=== PATIENT | male | born 1965 | race Caucasian/White ===

== ENCOUNTER 2022-02-21 08:03 | Day surgery (SDC) | payer OTHER ==
[2022-02-21 09:00] VITALS: BMI 23.3
[2022-02-21 09:01] LABS: Protime INR 1.49
[2022-02-21 09:06] LABS: Potassium 3.7 mmol/L (3.5-5.1)
--- NOTE | 2022-02-21 10:22 | RAD REPORT ---
EXAM DESCRIPTION: RAD - Chest Pa And Lat (2 Views) - 02/21/2022 9:42 am CLINICAL HISTORY: PRE PROCEDURE SCREEENING COMPARISON: Paracentesis Proc Guidance dated 02/21/2022 FINDINGS: Lines: None. Lungs: There is likely a component of atelectasis as a result of the right pleural effusion. The lung s are otherwise clear. Pleural: Small right pleural effusion. Cardiac: The heart size is within normal limits. Mediastinum: Within normal limits. Bones: No acute fractures. Other: None IMPRESSION: Small right pleural effusion and probably underlying atelectasis.
--- NOTE | 2022-02-21 10:54 | RAD REPORT ---
EXAM DESCRIPTION: US - Paracentesis Proc Guidance - 02/21/2022 10:42 am CLINICAL HISTORY: ASCITES Ascites COMPARISON: No comparisons FINDINGS: Informed consent was obtained and time-out was performed. Patient's abdomen was prepped and draped in the usual sterile fashion. 1% lidocaine was used for loca l anesthetic purposes. A small skin incision was made. A paracentesis catheter was guided into the peroneal cavity under son ographic guidance. A small amount of fluid was sent for requested lab studies. A large volume paracentesis was performed . The patient tolerated the procedure well. IMPRESSION: Successful ultrasound-guided paracentesis.
[2022-02-21 11:13] VITALS: O2SAT 99
[2022-02-21 12:55] VITALS: BP 122/68
[2022-02-21 12:56] VITALS: TEMP 98
[2022-02-21 19:49] LABS: Appearance CLEAR (CLEAR); Body Fluid Source PERITONEAL; Color of fluid Yellow (COLORLESS)
[2022-02-21 19:50] LABS: Body Fluid WBC 108 /mm^3
== END 2022-02-21 11:45 | disposition home or self-care (01) ==
LOC: DS 08:03
PROVIDERS: ATTEND Internal Medicine Gastroenterology
DX: R18.8 Other ascites (principal); K70.30 Alcoholic cirrhosis of liver without ascites; R93.5 Abnormal findings on diagnostic imaging of other abdominal regions, including retroperitoneum
CPT/HCPCS: 36415; 49083; 71046; 80048; 82042; 82150; 84157; 85610; 85730; 87070; 89050

== ENCOUNTER 2023-01-20 18:52 | Inpatient (IN) | payer OTHER ==
--- OUTSIDE RECORDS SUMMARY | 2023-01-20 18:57 | XMS REPORT | Continuity of Care Document ---
:1965 Author Organization [facility] t Address [address] [place] [address] Care Team Providers Name Role Phone MIGUEL VAZQUEZ Primary Care Physician Unavailable JASS BIANCHI Attending Clinician Unavailable MALACHI DAVIS Attending Clinician Unavailable Only, Adc Test Attending Clinician Unavailable Tova Michelle MD Attending Clinician Pob, [facility] Lab Main Attending Clinician Unavailable TOVA MICHELLE Attending Clinician Unavailable AMERICA FAYE Attending Clinician Unavailable America Faye DO Attending Clinician MIGUEL VAZQUEZ Attending Clinician Unavailable Doctor Unassigned, [place] Attending Clinician Unavailable CHOCO DIAZ III Attending Clinician Unavailable Joe GREENE MD, John G Attending Clinician Miguel Vazquez MD Attending Clinician PIPPA JOHNSON Attending Clinician Unavailable Lab, Ang - Db Attending Clinician Unavailable JAMARCUS MUNGUIA Attending Clinician Unavailable KELLIE BARAJAS Attending Clinician Unavailable PEDRITO MASTERSON Attending Clinician Unavailable NATALYA LOCKHART Attending Clinician Unavailable AMERICA FAYE Admitting Clinician Unavailable CHOCO DIAZ III Admitting Clinician Unavailable PEDRITO MASTERSON Admitting Clinician Unavailable Jass Bianchi Admitting Clinician Payers Payer Name Policy Type Policy Number Effective Date Expiration Date S Psychiatric CHOICE/CHOICE [id number] 2019 PLUS 00:00:00 [facility] [id number] 2019 PPO 00:00:00 MEDICARE PART A \\T\\ [id number] 2020 B 00:00:00 Problems Condition Condition Condition Status Onset Resolution Last Treating Co mments Source Name Details Category Date Date Treatment Clinician Date 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 00:00: [place] (ECG) (ECG) 00 [facility] (EKG) (EKG) Branch Excessive Excessive Disease Active Uni vers crying crying 7- ity of 00:00: [place] [facility] Hypertensi Hypertensi Disease Active 2018-05 U nivers ve urgency ve urgency 0-09 it y of 00:00: [place] [facility] Cigarette Cigarette Disease Active 2018-05 Uni vers smoker smoker 0-09 ity of 00:00: [place] [facility] Chest pain Chest pain Disease Active 2018-05 U nivers 0-08 ity of 00:00: [place] [facility] Non-recurr Non-recurr Disease Active Overview : Univers ent ent 2-04 Formattin ity of bilateral bilateral 00:00: [place] of [place] inguinal inguinal 00 note Medica l hernia hernia might be Branch without without different obstructio obstructio from the n or n or original. gangrene gangrene Added automatic ally from request for surgery [id number] Inguinal Inguinal Disease Active Unive rs hernia hernia - ity of 00:00: [place] [facility] Fatty Fatty Disease Active Univers liver liver 6- ity of 00:00: [place] [facility] Abnormal Abnormal Disease Active Unive rs LFTs LFTs - ity of 00:00: [place] [facility] Essential Essential Disease Active Uni vers hypertensi hypertensi 1-19 it y of on on 00:00: [place] [facility] Insomnia Insomnia Disease Active Unive rs due to due to 06-15 ity of medical medical 00:00: [place] condition condition 00 Medi shakila Branch Osteoarthr Osteoarthr Disease Active U nivers itis of itis of 06-15 ity of lumbar lumbar 00:00: [place] spine spine 00 Medical Branch Chronic Chronic Disease Active Univers lower back lower back - it y of pain pain 00:00: [place] 00 Medical Branch Hypertensi Hypertens Problem Active 2016-11-13 Memoria ve malissa 05-28 04:00:55 l disorder, disorder, 00:00: Herm gerardo systemic systemic 00 arterial arterial (disorder) (disorder) Active 05/28/2015 Problem 11/13/2016 Pt states he was prescribed lisinopril but it gave him bad headaches and he discussed it with his pcp and it was discontinu ed. Not currently taking anything for bp. 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, lumbar degenerati region on, lumbar region 11/10/2016 11/13/2016 [facility] Allergies, Adverse Reactions, Alerts Allergy Allergy Status Severity Reaction(s) Onset Inactive Treating Comm ents Source Name Type Date Date Clinician NO KNOWN Drug Active Univers ALLERGIE Class ity of S [facility] Social History Social Habit Start Date Stop Date Quantity Comments Source History of 2019 Cigar Smoker [place] o f tobacco use 00:00:00 [facility] Exposure to 2022-01-30 2022-02-09 Not sure [facility] SARS-CoV-2 00:00:00 13:18:00 [facility] (event) Branch Alcohol intake 2022-02-09 2022-02-09 .29 /d University of 00:00:00 00:00:00 [facility] Tobacco use and 2020-12-21 2020-12-21 Smokeless tobacco Un iversity of exposure 00:00:00 00:00:00 non-user [facility] Social History 2016-11-11 2016-11-11 [facility] finesse 15:35:00 15:35:00 Tobacco Comment 2016-06-14 2016-06-14 2 cigars per day Uni versity of 00:00:00 00:00:00 [facility] Sex [birth year] Universit y of 00:00:00 00:00:00 [facility] Smoking Status Start Date Stop Date Source Smokes tobacco daily 2020-12-21 00:00:00 Univers ity [facility] Medications Ordered Filled Start Stop Current Ordering Indication Dosage Frequency Signature Comments Components Source Medication Medication Date Date Medication? Clinician (SIG) Name Name iopamidol 2021- No [id number] 65mL 65 mL, Univers (ISOVUE 02-09 Intravenou ity o f 370-500 mL) 20:30: 20:30 s, ONCE, 1 [place] injection 00 :00 dose, On Medica l 65 mL Anita Abhijit 02/09/22 at 1530, Routine spironolact Yes [id number] 25mg Take 1 Univers one 25 mg 9-15 tablet by ity o f tablet 00:00: mouth in [place] 00 the Medical morning. Branch furosemide Yes [id number] 20mg Take 1 Univers 20 mg 9-15 tablet by ity of tablet 00:00: mouth [place] 00 every Medical morning. Branch spironolact Yes [id number] 25mg Take 1 Univers one 25 mg 9-15 tablet by ity o f tablet 00:00: mouth in [place] 00 the Medical morning. Branch furosemide 0 Yes [id number] 20mg Take 1 Univers 20 mg 9-15 tablet by ity of tablet 00:00: mouth [place] 00 every Medical morning. Branch spironolact 0 Yes [id number] 25mg Take 1 Univers one 25 mg 9-15 tablet by ity o f tablet 00:00: mouth in [place] 00 the Medical morning. Branch furosemide 2021-0 Yes [id number] 20mg Take 1 Univers 20 mg 9-15 tablet by ity of tablet 00:00: mouth [place] 00 every Medical morning. Branch spironolact 0 Yes [id number] 25mg Take 1 Univers one 25 mg 9-15 tablet by ity o f tablet 00:00: mouth in [place] 00 the Medical morning. Branch furosemide 0 Yes [id number] 20mg Take 1 Univers 20 mg 9-15 tablet by ity of tablet 00:00: mouth [place] 00 every Medical morning. Branch iopamidol 2020-05- No [id number] 80mL 80 mL, Univers (ISOVUE 06-29 Intravenou ity o f 370-500 mL) 15:43: 15:40 s, ONCE, 1 [place] injection 00 :00 dose, On Medica l 80 mL Anita Branch 04/28/21 at 1000, Routine CITALOPRAM 0 Yes [id number] TAKE 1 Univers 10 mg 8-18 TABLET BY ity of tablet 00:00: MOUTH [place] 00 EVERY DAY Medical Branch CITALOPRAM 0 Yes [id number] TAKE 1 Univers 10 mg 8-18 TABLET BY ity of tablet 00:00: MOUTH [place] 00 EVERY DAY Medical Branch CITALOPRAM 0 Yes [id number] TAKE 1 Univers 10 mg 8-18 TABLET BY ity of tablet 00:00: MOUTH [place] 00 EVERY DAY Medical Branch CITALOPRAM 0 Yes [id number] TAKE 1 Univers 10 mg 8-18 TABLET BY ity of tablet 00:00: MOUTH [place] 00 EVERY DAY Medical Branch CITALOPRAM 0 Yes [id number] TAKE 1 Univers 10 mg 8-18 TABLET BY ity of tablet 00:00: MOUTH [place] 00 EVERY DAY Medical Branch CITALOPRAM 0 Yes [id number] TAKE 1 Univers 10 mg 8-18 TABLET BY ity of tablet 00:00: MOUTH [place] 00 EVERY DAY Medical Branch CITALOPRAM 0 Yes [id number] TAKE 1 Univers 10 mg 8-18 TABLET BY ity of tablet 00:00: MOUTH [place] 00 EVERY DAY Medical Branch CITALOPRAM 0 Yes [id number] TAKE 1 Univers 10 mg 8-18 TABLET BY ity of tablet 00:00: MOUTH [place] 00 EVERY DAY Medical Branch CITALOPRAM 0 Yes [id number] TAKE 1 Univers 10 mg 8-18 TABLET BY ity of tablet 00:00: MOUTH [place] 00 EVERY DAY Medical Branch gabapentin 2020-0 Yes [id number] 300mg Take 1 Univers 300 mg 2-24 capsule by ity of capsule 00:00: mouth (three) Medical times Branch daily. gabapentin 2020-0 Yes [id number] 300mg Take 1 Univers 300 mg 2-24 capsule by ity of capsule 00:00: mouth (three) Medical times Branch daily. gabapentin 2020-0 Yes [id number] 300mg Take 1 Univers 300 mg 2-24 capsule by ity of capsule 00:00: mouth (three) Medical times Branch daily. gabapentin 2020-0 Yes [id number] 300mg Take 1 Univers 300 mg 2-24 capsule by ity of capsule 00:00: mouth (three) Medical times Branch daily. gabapentin 2020-0 Yes [id number] 300mg Take 1 Univers 300 mg 2-24 capsule by ity of capsule 00:00: mouth () Medical times Branch daily. gabapentin 2020-0 Yes [id number] 300mg Take 1 Univers 300 mg 2-24 capsule by ity of capsule 00:00: mouth () Medical times Branch daily. gabapentin 2020-0 Yes [id number] 300mg Take 1 Univers 300 mg 2-24 capsule by ity of capsule 00:00: mouth () Medical times Branch daily. gabapentin 2020-0 Yes [id number] 300mg Take 1 Univers 300 mg 2-24 capsule by ity of capsule 00:00: mouth () Medical times Branch daily. gabapentin 2020-0 Yes [id number] 300mg Take 1 Univers 300 mg 2-24 capsule by ity of capsule 00:00: mouth [place] () Medical times Branch daily. Colace No 100 mg = 1 Memor ia 6-17 caps, Cap, l 02:00: Oral, BID, Scooby first dose 11/10/16 21:00:00 CDT Colace No 100 mg = 1 Memor ia 6-17 caps, Cap, l 02:00: Oral, BID, Scooby 00 first dose 11/10/16 21:00:00 CDT Acetaminoph Yes Special Mem oria en 325 MG / 11-10 Instructio l Hydrocodone 22:43: ns: 1-2 Her nava Bitartrate 00 Tab(s), 10 MG Oral PO, Every Tablet 4-6 hours, [[place] as needed 10/325] for pain Acetaminoph Yes Special Mem oria en 325 MG / 6-16 Instructio l Hydrocodone 22:43: ns: 1-2 Her nava Bitartrate 00 Tab(s), 10 MG Oral PO, Every Tablet 4-6 hours, [[place] as needed 10/325] for pain Cefazolin No 2 gm, Memoria 6-16 Soln-IV, l 20:30: IV Scooby 00 Piggyback, q8hr, infuse over 30 minutes, order duration: 3 doses, first dose 11/10/16 15:30:00 CDT, stop date 11/11/16 15:29:00 CDT, Prophylaxi s Cefazolin No 2 gm, Memoria 6-16 Soln-IV, l 20:30: IV [place] 00 Piggyback, q8hr, infuse over 30 minutes, order duration: 3 doses, first dose 11/10/16 15:30:00 CDT, stop date 11/11/16 15:29:00 CDT, Prophylaxi s ferrous No 325 mg = 1 [place] deyvi sulfate 6-16 tabs, Tab, l 18:00: Oral, Bennett TIDPC, first dose 11/10/16 13:00:00 CDT ferrous No 325 mg = 1 [place] deyvi sulfate 6-16 tabs, Tab, l 18:00: Oral, Bennett 00 TIDPC, first dose 11/10/16 13:00:00 CDT Saline Lock No 10 mL, [place] deyvi Flush 6-16 Soln, IV l 17:00: Push, Scooby 00 q8hr, first dose 11/10/16 12:00:00 CDT Saline Lock No 10 mL, [place] deyvi Flush 6-16 Soln, IV l 17:00: Push, Scooby 00 q8hr, first dose 11/10/16 12:00:00 CDT Benadryl No 25 mg = Memori a 6-16 0.5 mL, l 16:25: Injection, Scooby 00 IV Push, q6hr PRN for itching, first dose 11/10/16 11:25:00 CDT Bisacodyl 2017-0 No 10 mg = 1 Mem oria 6-16 supp, l 16:25: Supp, LA, Bennett 00 Daily PRN for constipati on, first dose 11/10/16 11:25:00 CDT Robaxin 2017-0 No 750 mg, IV Clinton deyvi IVPB 6-16 Piggyback, l 16:25: q6hr PRN Scooby 00 for muscle spasms, infuse over 15 minutes, first dose 11/10/16 11:25:00 CDT Diphenhydra 2017-0 No 25 mg = 1 M emoria mine 6-16 caps, Cap, l 16:25: Oral, q6hr Bennett 00 PRN for itching, first dose 11/10/16 11:25:00 CDT Benadryl 2017-0 No 25 mg = Memori a 6-16 0.5 mL, l 16:25: Injection, Bennett 00 IV Push, q6hr PRN for itching, first dose 11/10/16 11:25:00 CDT Bisacodyl 2017-0 No 10 mg = 1 Mem oria 6-16 supp, l 16:25: Supp, LA, Scooby 00 Daily PRN for constipati on, first dose 11/10/16 11:25:00 CDT Morphine 2017-0 No 8 mg = 0.8 Mem oria 6-16 mL, l 16:25: Injection, Scooby 00 IM, q3hr PRN for breakthrou gh pain, first dose 11/10/16 11:25:00 CDT Robaxin 2017-0 No 750 mg, IV Clinton deyvi IVPB 6-16 Piggyback, l 16:25: q6hr PRN Scooby 00 for muscle spasms, infuse over 15 minutes, first dose 11/10/16 11:25:00 CDT Diphenhydra 2017-0 No 25 mg = 1 M emoria mine 6-16 caps, Cap, l 16:25: Oral, q6hr Scooby 00 PRN for itching, first dose 11/10/16 11:25:00 CDT Morphine 2017-0 No 8 mg = 0.8 Mem oria 6-16 mL, l 16:25: Injection, Scooby 00 IM, q3hr PRN for breakthrou gh pain, first dose 11/10/16 11:25:00 CDT Flu Shot PF No 0.5 mL, Mem oria 6-16 Injection, l 16:25: IM, Once Bennett 00 PRN for other (see comment), first dose 11/10/16 11:25:00 CDT Acetaminoph No Notes: Max Memoria en 325 MG / 6-16 4gm l Hydrocodone 16:25: acetaminop [place] Bitartrate 00 hen in 24 10 MG Oral hours Tablet [[place] 10/325] Ondansetron No 4 mg = 2 Me moria 6-16 mL, l 16:25: Injection, Bennett 00 IV Push, q4hr PRN for nausea/vom iting, first dose 11/10/16 11:25:00 CDT Promethazin No 25 mg = 1 M emoria e 6-16 mL, l 16:25: Injection, Scooby 00 IM, q4hr PRN for severe nausea, first dose 11/10/16 11:25:00 CDT Naloxone No 0.1 mg = Memor ia -16 0.25 mL, l 16:25: Injection, Bennett 00 IV Push, q2min PRN for other (see comment), order duration: 4 doses, first dose 11/10/16 11:25:00 CDT, stop date Limited # of times Saline Lock No 10 mL, [place] deyvi Flush -16 Soln, IV l 16:25: Push, As [place] 00 Indicated PRN for flush, first dose 11/10/16 11:25:00 CDT LR 1,000 mL No 1,000 mL, M emoria 6-16 IV, 100 l 16:25: mL/hr, Scooby 00 start date 11/10/16 11:25:00 CDT Flu Shot PF No 0.5 mL, Mem oria 6-16 Injection, l 16:25: IM, Once [place] 00 PRN for other (see comment), first dose 11/10/16 11:25:00 CDT Acetaminoph No Notes: Max Memoria en 325 MG / 6-16 4gm l Hydrocodone 16:25: acetaminop [place] Bitartrate 00 hen in 24 10 MG Oral hours Tablet [[place] 10/325] Ondansetron 2016-0 No 4 mg = 2 Me moria 6-16 mL, l 16:25: Injection, Scooby 00 IV Push, q4hr PRN for nausea/vom iting, first dose 11/10/16 11:25:00 CDT Promethazin 2016-0 No 25 mg = 1 M emoria e 6-16 mL, l 16:25: Injection, Scooby 00 IM, q4hr PRN for severe nausea, first dose 11/10/16 11:25:00 CDT Naloxone 0 No 0.1 mg = Memor ia 6-16 0.25 mL, l 16:25: Injection, Scooby 00 IV Push, q2min PRN for other (see comment), order duration: 4 doses, first dose 11/10/16 11:25:00 CDT, stop date Limited # of times Saline Lock 2017- No 10 mL, [place] deyvi Flush -16 Soln, IV l 16:25: Push, As [place] 00 Indicated PRN for flush, first dose 11/10/16 11:25:00 CDT LR 1,000 mL 2017-0 No 1,000 mL, M emoria 6-16 IV, 100 l 16:25: mL/hr, Bennett 00 start date 11/10/16 11:25:00 CDT Morphine 2016-0 No 30 mL, [employer] Mem oria 6-16 Dose (mg): l 15:31: 2, Lockout Scooby 00 Interval (min): 10, Limit Amount (mg): 10, Limit Period (hr): 1, Continuous Rate (mg/hr): 1, IV, [employer], start date 11/10/16 10:31:00 CDT Naloxone 2016-0 No 0.1 mg = Memor ia 6-16 0.25 mL, l 15:31: Injection, Bennett 00 IV Push, q2min PRN for other (see comment), first dose 11/10/16 10:31:00 CDT Morphine 2017-0 No 30 mL, [employer] Mem oria 6-16 Dose (mg): l 15:31: 2, Lockout Interval (min): 10, Limit Amount (mg): 10, Limit Period (hr): 1, Continuous Rate (mg/hr): 1, IV, [employer], start date 11/10/16 10:31:00 CDT Naloxone 2017-0 No 0.1 mg = Memor ia 6-16 0.25 mL, l 15:31: Injection, IV Push, q2min PRN for other (see comment), first dose 11/10/16 10:31:00 CDT Misc 2017-0 No 900 mL, Memoria Medication 6-16 Soln-IV, l 15:30: IV, Once, first dose 11/10/16 10:30:00 CDT, stop date 11/10/16 10:30:00 CDT Misc 2017-0 No 900 mL, Memoria Medication 6-16 Soln-IV, l 15:30: IV, Once, first dose 11/10/16 10:30:00 CDT, stop date 11/10/16 10:30:00 CDT HYDROmorpho 2017-0 No 0.5 mg = Me moria ne 6-16 0.25 mL, l 15:21: Injection, IV, Once, first dose 11/10/16 10:21:00 CDT, stop date 11/10/16 10:21:00 CDT HYDROmorpho 2017-0 No 0.5 mg = Me moria ne 6-16 0.25 mL, l 15:21: Injection, IV, Once, first dose 11/10/16 10:21:00 CDT, stop date 11/10/16 10:21:00 CDT labetalol 2017-0 No 5 mg = 1 [place] deyvi 6-16 mL, l 14:56: Injection, IV, Once, first dose 11/10/16 9:56:00 CDT, stop date 11/10/16 9:56:00 CDT labetalol 2017-0 No 5 mg = 1 [place] deyvi 6-16 mL, l 14:56: Injection, IV, Once, first dose 11/10/16 9:56:00 CDT, stop date 11/10/16 9:56:00 CDT Robaxin 2017-0 No 1 gm, IV Memori a IVPB 6-16 Piggyback, l 14:00: Once, infuse over 30 minutes, first dose 11/10/16 9:00:00 CDT, stop date 11/10/16 9:00:00 CDT Lisinopril 2017-0 No 1 tab, Memor ia 6-16 Tab, Oral, l 14:00: Daily, first dose 11/10/16 9:00:00 CDT Robaxin 2017-0 No 1 gm, IV Memori a IVPB 6-16 Piggyback, l 14:00: Once, infuse over 30 minutes, first dose 11/10/16 9:00:00 CDT, stop date 11/10/16 9:00:00 CDT Lisinopril 2017-0 No 1 tab, Memor ia 6-16 Tab, Oral, l 14:00: Daily, first dose 11/10/16 9:00:00 CDT sugammadex 2017-0 No 178 mg = Mem oria 6-16 1.78 mL, l 13:33: Injection, IV, Once, first dose 11/10/16 8:33:00 CDT, stop date 11/10/16 8:33:00 CDT sugammadex 2017-0 No 178 mg = Mem oria 6-16 1.78 mL, l 13:33: Injection, IV, Once, first dose 11/10/16 8:33:00 CDT, stop date 11/10/16 8:33:00 CDT ondansetron 2017-0 No 4 mg = 2 Me moria 6-16 mL, l 13:24: Injection, IV, Once, first dose 11/10/16 8:24:00 CDT, stop date 11/10/16 8:24:00 CDT ondansetron 2017-0 No 4 mg = 2 Me moria 6-16 mL, l 13:24: Injection, IV, Once, first dose 11/10/16 8:24:00 CDT, stop date 11/10/16 8:24:00 CDT labetalol 2017-0 No 5 mg = 1 [place] deyvi 6-16 mL, l 13:23: Injection, Scooby 00 IV, Once, first dose 11/10/16 8:23:00 CDT, stop date 11/10/16 8:23:00 CDT labetalol 2017-0 No 5 mg = 1 [place] deyvi 6-16 mL, l 13:23: Injection, Scooby 00 IV, Once, first dose 11/10/16 8:23:00 CDT, stop date 11/10/16 8:23:00 CDT Hydralazine 2017-0 No 5 mg = Clinton deyvi 6-16 0.25 mL, l 13:19: Injection, Bennett 00 IV Push, As Indicated PRN for hypertensi on, first dose 11/10/16 8:19:00 CDT Labetalol 2016-0 No 5 mg = 1 [place] deyvi 6-16 mL, l 13:19: Injection, Scooby 00 IV Push, As Indicated PRN for hypertensi on, first dose 11/10/16 8:19:00 CDT Levalbutero 2016-0 No 0.63 mg = M emoria l 0.21 6-16 3 mL, l MG/ML 13:19: Soln, NEB, Bimal n Inhalant 00 Once PRN Solution for [Xopenex] shortness of breath or wheezing, first dose 11/10/16 8:19:00 CDT Ondansetron 2016-0 No 4 mg = 2 Me moria 6-16 mL, l 13:19: Injection, Scooby 00 IV Push, q15min PRN for nausea/vom iting, order duration: 2 doses, first dose 11/10/16 8:19:00 CDT, stop date Limited # of times Albuterol 2017-0 No 2.5 mg = 3 Me moria 0.83 MG/ML 6-16 mL, Soln, l Inhalant 13:19: NEB, Once Herm gerardo Solution 00 PRN for wheezing, first dose 11/10/16 8:19:00 CDT Saline Lock 2017-0 No 10 mL, Clinton deyvi Flush 6-16 Soln, IV l 13:19: Push, As [place] 00 Indicated PRN for flush, first dose 11/10/16 8:19:00 CDT Morphine 2016-0 No 2 mg = 0.2 Mem oria 6-16 mL, l 13:19: Injection, Scooby 00 IV Push, q5min PRN for pain, first dose 11/10/16 8:19:00 CDT Demerol HCl No 12.5 mg = M emoria 6-16 0.25 mL, l 13:19: Injection, Bennett 00 IV Push, Once PRN for shivers, first dose 11/10/16 8:19:00 CDT Dilaudid No 0.5 mg = Memor ia 6-16 0.25 mL, l 13:19: Injection, Bennett 00 IV Push, q10min PRN for pain severe (7-10), first dose 11/10/16 8:19:00 CDT Hydralazine No 5 mg = Clinton deyvi 6-16 0.25 mL, l 13:19: Injection, Bennett 00 IV Push, As Indicated PRN for hypertensi on, first dose 11/10/16 8:19:00 CDT Labetalol No 5 mg = 1 Clinton deyvi 6-16 mL, l 13:19: Injection, Scooby 00 IV Push, As Indicated PRN for hypertensi on, first dose 11/10/16 8:19:00 CDT Levalbutero No 0.63 mg = M emoria l 0.21 6-16 3 mL, l MG/ML 13:19: Soln, NEB, Bimal n Inhalant 00 Once PRN Solution for [Xopenex] shortness of breath or wheezing, first dose 11/10/16 8:19:00 CDT Ondansetron No 4 mg = 2 Me moria 6-16 mL, l 13:19: Injection, Bennett 00 IV Push, q15min PRN for nausea/vom iting, order duration: 2 doses, first dose 11/10/16 8:19:00 CDT, stop date Limited # of times Albuterol No 2.5 mg = 3 Me moria 0.83 MG/ML 6-16 mL, Soln, l Inhalant 13:19: NEB, Once Herm gerardo Solution 00 PRN for wheezing, first dose 11/10/16 8:19:00 CDT Saline Lock 0 No 10 mL, Clinton deyvi Flush 6-16 Soln, IV l 13:19: Push, As Scooby 00 Indicated PRN for flush, first dose 11/10/16 8:19:00 CDT Morphine 2017-0 No 2 mg = 0.2 Mem oria 6-16 mL, l 13:19: Injection, Bennett 00 IV Push, q5min PRN for pain, first dose 11/10/16 8:19:00 CDT Demerol HCl 2017-0 No 12.5 mg = M emoria 6-16 0.25 mL, l 13:19: Injection, Bennett 00 IV Push, Once PRN for shivers, first dose 11/10/16 8:19:00 CDT Dilaudid 2017-0 No 0.5 mg = Memor ia 6-16 0.25 mL, l 13:19: Injection, Scooby 00 IV Push, q10min PRN for pain severe (7-10), first dose 11/10/16 8:19:00 CDT HYDROmorpho 2017-0 No 0.5 mg = Me moria ne 6-16 0.25 mL, l 13:17: Injection, Scooby 00 IV, Once, first dose 11/10/16 8:17:00 CDT, stop date 11/10/16 8:17:00 CDT HYDROmorpho 2017-0 No 0.5 mg = Me moria ne 6-16 0.25 mL, l 13:17: Injection, Bennett 00 IV, Once, first dose 11/10/16 8:17:00 CDT, stop date 11/10/16 8:17:00 CDT HYDROmorpho 2017-0 No 0.5 mg = Me moria ne 6-16 0.25 mL, l 13:08: Injection, Scooby 00 IV, Once, first dose 11/10/16 8:08:00 CDT, stop date 11/10/16 8:08:00 CDT HYDROmorpho 2017-0 No 0.5 mg = Me moria ne 6-16 0.25 mL, l 13:08: Injection, Scooby 00 IV, Once, first dose 11/10/16 8:08:00 CDT, stop date 11/10/16 8:08:00 CDT Hydralazine 2017-0 No 5 mg = Clinton deyvi 6-16 0.25 mL, l 13:03: Injection, Bennett 00 IV Push, As Indicated PRN for hypertensi on, first dose 11/10/16 8:03:00 CDT Labetalol No 5 mg = 1 Clinton deyvi 6-16 mL, l 13:03: Injection, Scooby 00 IV Push, As Indicated PRN for hypertensi on, first dose 11/10/16 8:03:00 CDT Saline Lock No 10 mL, Clinton deyvi Flush 6-16 Soln, IV l 13:03: Push, As Bennett 00 Indicated PRN for flush, first dose 11/10/16 8:03:00 CDT Morphine No 2 mg = 0.2 Mem oria 6-16 mL, l 13:03: Injection, Scooby 00 IV Push, q5min PRN for pain, first dose 11/10/16 8:03:00 CDT Albuterol No 2.5 mg = 3 Me moria 0.83 MG/ML 6-16 mL, Soln, l Inhalant 13:03: NEB, Once Herm gerardo Solution 00 PRN for wheezing, first dose 11/10/16 8:03:00 CDT Ondansetron No 4 mg = 2 Me moria 6-16 mL, l 13:03: Injection, Bennett 00 IV Push, q15min PRN for nausea/vom iting, order duration: 2 doses, first dose 11/10/16 8:03:00 CDT, stop date Limited # of times Demerol HCl No 12.5 mg = M emoria 6-16 0.25 mL, l 13:03: Injection, Scooby 00 IV Push, Once PRN for shivers, first dose 11/10/16 8:03:00 CDT Promethazin No 12.5 mg = M emoria e 6-16 0.5 mL, l 13:03: Injection, Scooby 00 IM, Once PRN for severe nausea, first dose 11/10/16 8:03:00 CDT Dilaudid No 0.5 mg = Memor ia 6-16 0.25 mL, l 13:03: Injection, Scooby 00 IV Push, q10min PRN for pain severe (7-10), first dose 11/10/16 8:03:00 CDT Levalbutero No 0.63 mg = M emoria l 0.21 6-16 3 mL, l MG/ML 13:03: Soln, NEB, Bimal n Inhalant 00 Once PRN Solution for [Xopenex] shortness of breath or wheezing, first dose 11/10/16 8:03:00 CDT Hydralazine No 5 mg = Clinton deyvi 6-16 0.25 mL, l 13:03: Injection, Bennett 00 IV Push, As Indicated PRN for hypertensi on, first dose 11/10/16 8:03:00 CDT Labetalol No 5 mg = 1 Clinton deyvi 6-16 mL, l 13:03: Injection, Scooby 00 IV Push, As Indicated PRN for hypertensi on, first dose 11/10/16 8:03:00 CDT Saline Lock No 10 mL, Clinton deyvi Flush 6-16 Soln, IV l 13:03: Push, As Scooby 00 Indicated PRN for flush, first dose 11/10/16 8:03:00 CDT Morphine No 2 mg = 0.2 Mem oria 6-16 mL, l 13:03: Injection, Scooby 00 IV Push, q5min PRN for pain, first dose 11/10/16 8:03:00 CDT Albuterol No 2.5 mg = 3 Me moria 0.83 MG/ML 6-16 mL, Soln, l Inhalant 13:03: NEB, Once Herm gerardo Solution 00 PRN for wheezing, first dose 11/10/16 8:03:00 CDT Ondansetron No 4 mg = 2 Me moria 6-16 mL, l 13:03: Injection, Bennett 00 IV Push, q15min PRN for nausea/vom iting, order duration: 2 doses, first dose 11/10/16 8:03:00 CDT, stop date Limited # of times Demerol HCl No 12.5 mg = M emoria 6-16 0.25 mL, l 13:03: Injection, Scooby 00 IV Push, Once PRN for shivers, first dose 11/10/16 8:03:00 CDT Promethazin No 12.5 mg = M emoria e 6-16 0.5 mL, l 13:03: Injection, Scooby 00 IM, Once PRN for severe nausea, first dose 11/10/16 8:03:00 CDT Dilaudid 2017-0 No 0.5 mg = Memor ia 6-16 0.25 mL, l 13:03: Injection, Scooby 00 IV Push, q10min PRN for pain severe (7-10), first dose 11/10/16 8:03:00 CDT Levalbutero 2017-0 No 0.63 mg = M emoria l 0.21 6-16 3 mL, l MG/ML 13:03: Soln, NEB, Bimal n Inhalant 00 Once PRN Solution for [Xopenex] shortness of breath or wheezing, first dose 11/10/16 8:03:00 CDT fentaNYL 2017-0 No 100 mcg = Clinton deyvi 6-16 2 mL, l 12:59: Injection, Scooby 00 IV, Once, first dose 11/10/16 7:59:00 CDT, stop date 11/10/16 7:59:00 CDT fentaNYL 2017-0 No 100 mcg = Clinton deyvi 6-16 2 mL, l 12:59: Injection, Scooby 00 IV, Once, first dose 11/10/16 7:59:00 CDT, stop date 11/10/16 7:59:00 CDT rocuronium 2017-0 No 45 mg = Clinton deyvi 6-16 4.5 mL, l 12:55: Injection, Scooby 00 IV, Once, first dose 11/10/16 7:55:00 CDT, stop date 11/10/16 7:55:00 CDT rocuronium 2017-0 No 45 mg = Clinton deyvi 6-16 4.5 mL, l 12:55: Injection, Scooby 00 IV, Once, first dose 11/10/16 7:55:00 CDT, stop date 11/10/16 7:55:00 CDT dexamethaso 2017-0 No 8 mg = 2 Me moria ne 6-16 mL, l 12:54: Injection, Scooby 00 IV, Once, first dose 11/10/16 7:54:00 CDT, stop date 11/10/16 7:54:00 CDT dexamethaso 2017-0 No 8 mg = 2 Me moria ne 6-16 mL, l 12:54: Injection, IV, Once, first dose 11/10/16 7:54:00 CDT, stop date 11/10/16 7:54:00 CDT ceFAZolin 2017-0 No 2 gm, Memoria 6-16 Soln-IV, l 12:53: IV Piggyback, Once, first dose 11/10/16 7:53:00 CDT, stop date 11/10/16 7:53:00 CDT ceFAZolin 2017-0 No 2 gm, Memoria 6-16 Soln-IV, l 12:53: IV Bennett 00 Piggyback, Once, first dose 11/10/16 7:53:00 CDT, stop date 11/10/16 7:53:00 CDT lidocaine 2017-0 No 1 onel, Memori a topical 6-16 Soln, IV, l 12:50: Once, first dose 11/10/16 7:50:00 CDT, stop date 11/10/16 7:50:00 CDT lidocaine 2017-0 No 1 onel, Memori a topical 6-16 Soln, IV, l 12:50: Once, first dose 11/10/16 7:50:00 CDT, stop date 11/10/16 7:50:00 CDT succinylcho 2017-0 No 100 mg = 5 Memoria line 6-16 mL, l 12:49: Injection, IV, Once, first dose 11/10/16 7:49:00 CDT, stop date 11/10/16 7:49:00 CDT rocuronium 2017-0 No 5 mg = 0.5 M emoria 6-16 mL, l 12:49: Injection, IV, Once, first dose 11/10/16 7:49:00 CDT, stop date 11/10/16 7:49:00 CDT lidocaine 2017-0 No 3 mL, Memoria 6-16 Injection, l 12:49: IV, Once, first dose 11/10/16 7:49:00 CDT, stop date 11/10/16 7:49:00 CDT propofol 2017-0 No 170 mg = Memor ia 6-16 17 mL, l 12:49: Emulsion, Scooby 00 IV, Once, first dose 11/10/16 7:49:00 CDT, stop date 11/10/16 7:49:00 CDT fentaNYL 2017-0 No 150 mcg = Clinton deyvi 6-16 3 mL, l 12:49: Injection, Bennett 00 IV, Once, first dose 11/10/16 7:49:00 CDT, stop date 11/10/16 7:49:00 CDT succinylcho 2017- No 100 mg = 5 Memoria line 6-16 mL, l 12:49: Injection, Bennett 00 IV, Once, first dose 11/10/16 7:49:00 CDT, stop date 11/10/16 7:49:00 CDT rocuronium 2017- No 5 mg = 0.5 M emoria 6-16 mL, l 12:49: Injection, Scooby 00 IV, Once, first dose 11/10/16 7:49:00 CDT, stop date 11/10/16 7:49:00 CDT lidocaine 2017-0 No 3 mL, Memoria 6-16 Injection, l 12:49: IV, Once, first dose 11/10/16 7:49:00 CDT, stop date 11/10/16 7:49:00 CDT propofol 2017- No 170 mg = Memor ia 6-16 17 mL, l 12:49: Emulsion, Bennett 00 IV, Once, first dose 11/10/16 7:49:00 CDT, stop date 11/10/16 7:49:00 CDT fentaNYL 2017-0 No 150 mcg = Clinton deyvi 6-16 3 mL, l 12:49: Injection, Bennett 00 IV, Once, first dose 11/10/16 7:49:00 CDT, stop date 11/10/16 7:49:00 CDT Misc 2017-0 No 1,000 mL, Memoria Medication 6-16 Soln-IV, l 12:46: IV, Once, Bennett 00 first dose 11/10/16 7:46:00 CDT, stop date 11/10/16 7:46:00 CDT Misc 2017-0 No 1,000 mL, Memoria Medication 6-16 Soln-IV, l 12:46: IV, Once, first dose 11/10/16 7:46:00 CDT, stop date 11/10/16 7:46:00 CDT midazolam 2017-0 No 2 mg = 2 Clinton deyvi 6-16 mL, l 12:38: Injection, IV, Once, first dose 11/10/16 7:38:00 CDT, stop date 11/10/16 7:38:00 CDT midazolam 2017-0 No 2 mg = 2 Clinton deyvi 6-16 mL, l 12:38: Injection, Bennett 00 IV, Once, first dose 11/10/16 7:38:00 CDT, stop date 11/10/16 7:38:00 CDT Neurontin 2017-0 No 300 mg = 1 Me moria 6-16 caps, Cap, l 12:00: Oral, Once, first dose 11/10/16 7:00:00 CDT, stop date 11/10/16 7:00:00 CDT, Give 1 hour pre-operat ively Cefazolin 2017-0 No 2 gm, Memoria 6-16 Soln-IV, l 12:00: IV Piggyback, Once, infuse over 30 minutes, first dose 11/10/16 7:00:00 CDT, stop date 11/10/16 7:00:00 CDT, patient weight 50-120 kg, Prophylaxi s Neurontin 2017-0 No 300 mg = 1 Me moria 6-16 caps, Cap, l 12:00: Oral, Once, first dose 11/10/16 7:00:00 CDT, stop date 11/10/16 7:00:00 CDT, Give 1 hour pre-operat ively Cefazolin 2017-0 No 2 gm, Memoria 6-16 Soln-IV, l 12:00: IV Piggyback, Once, infuse over 30 minutes, first dose 11/10/16 7:00:00 CDT, stop date 11/10/16 7:00:00 CDT, patient weight 50-120 kg, Prophylaxi s Oxycontin 2017-0 No 10 mg = 1 Mem oria 6-16 tabs, l 11:19: Tab-ER, Bennett 00 Oral, Pre Op, first dose 11/10/16 6:19:00 CDT Oxycontin No 10 mg = 1 Mem oria 6-16 tabs, l 11:19: Tab-ER, Oral, Pre Op, first dose 11/10/16 6:19:00 CDT LR 1,000 mL 2017 No 1,000 mL, M emoria 6-16 IV, 30 l 11:18: mL/hr, start date 11/10/16 6:18:00 CDT Lidocaine No 0.2 mL, Memor ia 2% 0.2 mL 16 Injection, l IV Start 11:18: Subcutaneo Her nava [[facility]] 00 us, Once PRN for other (see comment), first dose 11/10/16 6:18:00 CDT LR 1,000 mL No 1,000 mL, M emoria 6-16 IV, 30 l 11:18: mL/hr, start date 11/10/16 6:18:00 CDT Lidocaine No 0.2 mL, Memor ia 2% 0.2 mL 11-10 Injection, l IV Start 11:18: Subcutaneo [facility] nava [[facility]] 00 us, Once PRN for other (see comment), first dose 11/10/16 6:18:00 CDT Lisinopril Yes 1 tab, Memor ia 6-16 Oral, l 11:11: Daily, 0 Refill(s) Lisinopril Yes 1 tab, Memor ia 6-16 Oral, l 11:11: Daily, 0 Refill(s) Ibuprofen Yes 800 mg = 1 Me moria 800 MG Oral 6-14 tabs, l Tablet 00:11: Oral, TID, Jesica nn 00 0 Refill(s), pain tramadol Yes 50 mg = 1 Clinton deyvi hydrochlori 6-14 tabs, l de 50 MG 00:11: Oral, Bennett Oral Tablet 00 q4hr, PRN as needed for pain, 0 Refill(s), pain Cyclobenzap Yes 10 mg = 1 M emoria rine 6-14 tabs, l hydrochlori 00:11: Oral, TID, Bennett de 10 MG 00 PRN for Oral Tablet spasm, # 30 tabs, 0 Refill(s), pain Ibuprofen Yes 800 mg = 1 Me moria 800 MG Oral 6-14 tabs, l Tablet 00:11: Oral, TID, Jesica nn 00 0 Refill(s), pain tramadol Yes 50 mg = 1 Clinton deyvi hydrochlori 6-14 tabs, l de 50 MG 00:11: Oral, Bennett Oral Tablet 00 q4hr, PRN as needed for pain, 0 Refill(s), pain Cyclobenzap Yes 10 mg = 1 M emoria rine 6-14 tabs, l hydrochlori 00:11: Oral, TID, Bennett de 10 MG 00 PRN for Oral Tablet spasm, # 30 tabs, 0 Refill(s), pain Immunizations Ordered Filled Immunization Date Status Comments [facility] e Immunization Name Name TDAP (ADACEL) 2016-10-17 Completed [facility] of VACCINE 00:00:00 [facility] Pneumococcal 2016-10-17 Completed [place] o f Polysaccharide, 00:00:00 [facility] ical PPSV23 (PNEUMOVAX) Branch TDAP (ADACEL) 2016-10-17 Completed University of VACCINE 00:00:00 [facility] Pneumococcal 2016-10-17 Completed [place] o f Polysaccharide, 00:00:00 [facility] ical PPSV23 (PNEUMOVAX) Branch TDAP (ADACEL) 2016-10-17 Completed University of VACCINE 00:00:00 [facility] Pneumococcal 2016-10-17 Completed [place] o f Polysaccharide, 00:00:00 [facility] ical PPSV23 (PNEUMOVAX) Branch TDAP (ADACEL) 2016-10-17 Completed University of VACCINE 00:00:00 [facility] Pneumococcal 2016-10-17 Completed University o f Polysaccharide, 00:00:00 [facility] ical PPSV23 (PNEUMOVAX) Branch TDAP (ADACEL) 2016-10-17 Completed [facility] of VACCINE 00:00:00 [facility] Pneumococcal 2016-10-17 Completed [place] o f Polysaccharide, 00:00:00 [facility] ical PPSV23 (PNEUMOVAX) Branch TDAP (ADACEL) 2016-10-17 Completed [facility] of VACCINE 00:00:00 [facility] Pneumococcal 2016-10-17 Completed [place] o f Polysaccharide, 00:00:00 [facility] ical PPSV23 (PNEUMOVAX) Branch TDAP (ADACEL) 2016-10-17 Completed [facility] of VACCINE 00:00:00 [facility] Pneumococcal 2016-10-17 Completed [place] o f Polysaccharide, 00:00:00 [facility] ical PPSV23 (PNEUMOVAX) Branch TDAP (ADACEL) 2016-10-17 Completed [facility] of VACCINE 00:00:00 [facility] Pneumococcal 2016-10-17 Completed [place] o f Polysaccharide, 00:00:00 [facility] ical PPSV23 (PNEUMOVAX) Branch TDAP (ADACEL) 2016-10-17 Completed [facility] of VACCINE 00:00:00 [facility] Pneumococcal 2016-10-17 Completed [place] o f Polysaccharide, 00:00:00 [facility] ical PPSV23 (PNEUMOVAX) Branch Vital Signs Vital Name Observation Time Observation Value Comments Source Systolic blood 2022-02-09 20:50:00 138 mm[Hg] Univer sity of pressure [facility] Diastolic blood 2022-02-09 20:50:00 74 mm[Hg] Unive rsity [facility] Heart rate 2022-02-09 20:50:00 100 /min [facility] Respiratory rate 2022-02-09 20:50:00 17 /min [facility] Oxygen saturation in 2022-02-09 20:50:00 96 /min [facility] Arterial blood by [facility] Pulse oximetry [place] Body temperature 2022-02-09 18:13:00 36.56 [facility] 2022-02-09 18:13:00 180.3 cm [facility] Body weight 2022-02-09 18:13:00 75.751 kg [facility] BMI 2022-02-09 18:13:00 23.29 kg/m2 [facility] Systolic blood 2021-04-25 14:24:00 130 mm[Hg] Univer sity of pressure [facility] Diastolic blood 2021-04-25 14:24:00 73 mm[Hg] Unive rsity of [facility] Heart rate 2021-04-25 14:24:00 86 /min [facility] Body height 2021-04-25 14:17:00 180.3 cm [facility] Body weight 2021-04-25 14:17:00 73.483 kg [facility] BMI 2021-04-25 14:17:00 22.59 kg/m2 [facility] Oxygen saturation in 2021-04-25 14:17:00 98 /min University Arterial blood by [facility] Pulse oximetry Branch Systolic (mm Hg) 2016-11-11 14:36:00 Clinton rial Scooby Diastolic (mm Hg) 2016-11-11 14:36:00 Mem orial Scooby Systolic (mm Hg) 2016-11-11 13:00:00 Clinton rial Scooby Diastolic (mm Hg) 2016-11-11 13:00:00 Mem orial Bennett Respitory Rate 2016-11-11 13:00:00 Memori al Bennett Heart Rate 2016-11-11 13:00:00 [facility] [place] Temperature Oral (F) 2016-11-11 13:00:00 37.3 [facility] Systolic (mm Hg) 2016-11-11 09:00:00 Clinton rial Scooby Diastolic (mm Hg) 2016-11-11 09:00:00 Mem orial Bennett Respitory Rate 2016-11-11 09:00:00 Memori al Sc[place] Heart Rate 2016-11-11 09:00:00 [facility] [place] Temperature Oral (F) 2016-11-11 09:00:00 36.5 [facility] Heart Rate 2016-11-11 05:00:00 [facility] [place] Respitory Rate 2016-11-11 05:00:00 Memori al Bennett Temperature Oral (F) 2016-11-11 05:00:00 36.6 [facility] Temperature Oral (F) 2016-11-10 15:20:00 36.8 [facility] Height 2016-11-10 11:14:00 178 cm [facility] Height 2016-11-07 23:55:00 178 cm [facility] Procedures Procedure Date / Time Performing Clinician Source Performed COVID-19 (ID NOW RAPID 2022-02-16 18:16:00 EshaBrett wynne [facility] CREATINE KINASE 2022-02-16 18:12:00 Esha, [facility] FERRITIN SERUM 2022-02-16 18:12:00 Esha, [facility] acute hospital AMMONIA, PLASMA 2022-02-16 18:12:00 Esha, [facility] acute hospital THYROID STIMULATING 2022-02-16 18:12:00 Esha, [facility] HORMONE [facility] COMP. METABOLIC PANEL 2022-02-16 18:12:00 Esha, [facility] ([id number] [place] [address] ALPHA FETOPROTEIN 2022-02-16 18:12:00 Esha, [facility] IRON PANEL 2022-02-16 18:12:00 Esha, [facility] acute hospital CBC WITH DIFF 2022-02-16 18:12:00 Esha, [facility] acute hospital PROTHROMBIN TIME / INR 2022-02-16 18:12:00 Esha, [facility] ACTIVATED PARTIAL THRMPLAS 2022-02-16 18:12:00 Esha, [facility] HEPATITIS B SURFACE 2022-02-16 18:12:00 Esha, [facility] ANTIGEN [facility] HCV ANTIBODY 2022-02-16 18:12:00 Esha, [facility] acute hospital HAV ANTIBODY (IGG AND IGM) 2022-02-16 18:12:00 Esha, [facility] HIV 1/2 AG-AB WITH REFLEX 2022-02-16 18:12:00 [facility]sha, [facility]EN 2022-02-16 18:12:00 Esha, [facility] acute [facility] CT ABDOMEN PELVIS W 2022-02-09 19:30:49 America Faye [facility] CONTRAST [facility] LIPASE 2022-02-09 19:10:[address] [facility] MAGNESIUM 2022-02-09 19:10:[address] [facility] TROPONIN I 2022-02-09 19:10:[address] [facility] COMP. METABOLIC PANEL 2022-02-09 19:10:00 America Faye [facility] ([id number]) [facility] CBC WITH DIFF 2022-02-09 19:10:[address] [facility] PROTHROMBIN TIME / INR 2022-02-09 19:10:00 America Faye Un [facility] CONSENT/REFUSAL FOR 2022-02-09 18:09:47 Doctor Mamtassleigh, [facility] DIAGNOSIS AND TREATMENT [place] [facility] REFERRAL- REQUEST/RESPONSE 2021-06-10 06:01:00 Doctor Luisa , [facility] [place] [facility] DISABILITY/FMLA 2021-05-12 06:01:00 Doctor Luisa, [facility] Name [facility] CT THORAX W CONTRAST 2021-04-28 15:48:23 Choco Diaz [facility] HB CREATININE BLOOD 2021-04-28 15:41:00 Choco Diaz [facility] NOTICE OF PRIVACY 2021-04-28 15:14:49 Doctor Luisa, [facility] PRACTICES [place] [facility] CONSENT/REFUSAL FOR 2021-04-28 15:14:34 Doctor Luisa, [facility] DIAGNOSIS AND TREATMENT [place] [facility] ASSIGNMENT OF BENEFITS 2021-04-28 15:14:19 Doctor Luisa, [facility] Name [facility] REFERRAL- REQUEST/RESPONSE 2021-04-15 06:01:00 Doctor Luisa , [facility] Name [facility] ANTERIOR INSTRUMENTATION 2016-11-10 13:00:00 Bruce orial Scooby 2-3 VERTERBRAL SEGMENTS 94376 (Other)<sup>1</sup> ARTHRODESIS ANTERIOR 2016-11-10 13:00:00 Jefferson Almodovar INTERBODY/INCL MIN. DISCECTOMY ; LUMBAR 66455 (Other)<sup>2</sup> GRAFT BONE SPINE 21554 2016-11-10 13:00:00 Brandi Almodovar (Other)<sup>3</sup> INSERT INTERBODY DEVICE 2016-11-10 13:00:00 Clinton Almodovar W/ANT. INST. ANCHOR INTERVERT. DISC EA SPACE 95404 (Other)<sup>4</sup> INSERTION OF 2016-11-10 13:00:00 [facility] INTERVERTEBRAL BIOMECHANICAL DEVICE; W/O INTERBODY EA/CONTIGUOUS DEFECT 89999 (Other)<sup>5</sup> eye surgery 2014-05-28 00:00:00 [facility] surgery<sup>6</sup> 1990-05-28 00:00:00 Clinton Almodovar Encounters Start End Encounter Admission Attending Care Care Encounter Source Date/Time Date/Time Type Type Clinicians Facility Department ID 2020-11-09 Outpatient [facility] [id number] [place] 15:46:01 [facility] 2020-10-06 Outpatient ARIAS, [facility] [id number] [place] 08:42:25 [facility] 2022-02-27 2022-02-27 [facility] [id number] Univers 08:00:00 08:00:00 MALACHI quezada [facility] 2022-02-16 2022-02-16 Laboratory Only, [facility] Test [facility] 1.2.840. 114 [id number] Univers 13:15:00 13:30:00 Only Tova Michelle [id number] ity of [place] [id number] [facility] [id number] [address] 2022-02-16 2022-02-16 Credit Assistant Kaylee, [facility] Lab Main [facility] 1.2.8 40.114 [id number] Univers 12:30:00 12:45:00 Visit Tova Michelle [id number] ity of [facility] [id number] [facility] [phone] Oh dical [place] [address] Branch [facility] 2022-02-16 2022-02-16 Outpatient Tony MICHELLE [facility] [id number] Univers 12:30:00 12:30:00 TOVA quezada [facility] 2022-02-09 2022-02-09 [facility] [id number] Univers 13:19:00 16:16:00 AMERICA quezada [facility] 2022-02-09 2022-02-09 [facility] [id number] Univers 13:19:00 16:16:00 America KOROMA [id number] ity [facility] [id number] [facility] [phone] [facility] 084 Branch 2022-01-12 2022-01-12 Outpatient R SUSAN, [facility] [id number] Univers 10:20:00 10:20:00 MALACHI quezada [facility] 2021-06-27 2021-06-27 Outpatient R BAYLEE, [facility] [id number] Univers 13:00:00 13:00:00 WONDIFUL ity o f [facility] 2021-06-10 2021-06-10 Orders Doctor CHOCO 1.2.840.114 [id number] Univers 00:00:00 00:00:00 Only Unassigned, ANTHONY [id number] ity [place] [id number] Sherif as [id number] [facility] 009 [place] 2021-05-12 2021-05-12 Orders Doctor WILHELM 1.2.840.114 [id number] Univers 00:00:00 00:00:00 Only Unassigned, ANTHONY [id number] ity of [place] [facility] [id number] Sherif as [id number] [facility] 009 [place] 2021-04-28 2021-04-28 Outpatient R JOE III, [facility] [id number] Univers 09:18:19 23:59:00 CHOCO quezada [facility] 2021-04-28 2021-04-28 [facility] 1.2.840.114 [id number] Univers 09:00:00 23:59:00 Encounter Choco [id number] [facility] [id number] [facility] [id number] [facility] 801 Branch 2021-04-28 2021-04-28 Outpatient R JOE III, [facility] [id number] Univers 00:00:00 00:00:00 CHOCO quezada [facility] 2021-04-25 2021-04-25 [facility] 1.2.840.114 [id number] Univers 08:15:29 09:28:21 Visit Ryanful [facility] [id number] itDelroy [id number] Sherif as RAJI?BLEA [id number] [address] MEDICAL OFFICE [facility] 2021-04-25 2021-04-25 Outpatient R BAYLEE [facility] [id number] Univers 08:15:00 09:28:21 WONDIFUL ity o f [facility] 2021-04-25 2021-04-25 Outpatient R BAYLEE [facility] [id number] Univers 08:15:00 08:15:00 WONDIFUL ity o f [facility] 2021-04-19 2021-04-19 Telephone [facility] 1.2.840.114 [id number] Univers 00:00:00 00:00:00 Wondiful A HEALTH [id number] [facility] [id number] Sherif as RAJI?BLEA [id number] [address] MEDICAL OFFICE [facility] 2021-04-18 2021-04-18 [facility] [id number] Univers 08:45:00 08:45:00 WONDIFUL ity o f [facility] 2021-04-15 2021-04-15 Orders Doctor CHOCO 1.2.840.114 [id number] Univers 00:00:00 00:00:00 Only Unassigned, ANTHONY [id number] ity of [place] [facility] [id number] Sherif as [id number] [address] 2021-03-28 2021-03-28 Outpatient Tony JOHNSON [facility] [id number] Univers 13:00:00 13:00:00 QIANGJUN ity o f [facility] 2021-03-20 2021-03-20 Case [facility] 1.2.840.114 [id number] Univers 00:00:00 00:00:00 Management Wondiful A Health [id number] ity of [place] [id number] Sherif as Raji?Blea [id number] [address] Medical Office [facility] 2021-03-16 2021-03-16 Outpatient Tony JOHNSON [facility] [id number] Univers 10:40:00 10:40:00 PIPPA ity o f [facility] 2021-03-15 2021-03-15 Credit Assistant Lab, [facility] 1.2.840.1 [id number] Univers 08:49:49 09:04:49 Visit Miguel [facility] 350.1.13.1 0 ity of [place] [id number] Sherif as Raji?Blea [phone] [facility] [address] [place] Medical Office [facility] 2021-03-15 2021-03-15 Outpatient R BAYLEE, [facility] [id number] Univers 08:45:00 08:45:00 WONDITAMIKO ity o f [facility] 2021-02-20 2021-02-20 [facility] 1.2.840.114 [id number] Univers 00:00:00 00:00:00 Management Wondiful A Health [id number] ity of [place] [id number] Sherif as Raji?Blea [phone] [facility] 044 [place] Medical Office [facility] 2021-02-09 2021-02-09 Case Baylee [facility] 1.2.840.114 [id number] Univers 00:00:00 00:00:00 Management Wondiful A Health [id number] ity of [place] [id number] Sherif as Raji?Blea [id number] [facility] morgan 044 [facility] Office [facility] 2021-02-04 2021-02-04 Credit Assistant Lab, [facility] 1.2.840.1 [id number] Univers 10:51:33 11:18:57 Visit Migeul Vazquez Health 350.1.13.1 0 ity of [place] [id number] Sherif as Raji?Blea [id number] [facility] cathy 353 [facility] Office [facility] 2021-02-04 2021-02-04 Office Baylee [facility] 1.2.840.114 [id number] Univers 09:16:49 09:46:49 Visit Wondiful A Health [id number] ity of [place] [id number] Sherif as Raji?Blea [phone] Oh alisha mcghee [address] [place] [address] Medical Office Building 2021-02-04 2021-02-04 Outpatient R BAYLEE [facility] [id number] Univers 09:30:00 09:30:00 WONDIFUL ity o f [facility] 2021-02-04 2021-02-04 Telephone [facility] 1.2.840.114 [id number] Univers 00:00:00 00:00:00 Wondiful A Health 350.1.13.10 ity of [place] [id number] Sherif as Raji?Blea [id number] Oh alisha mcghee [address] [place] [address] Medical Office Building 2021-01-21 2021-01-21 [facility] 1.2.840.114 [id number] Univers 00:00:00 00:00:00 Outreach Wondiful [facility] [id number] [facility]y of [place] [id number] Sherif as Professio [phone] Oh alisha hamilton [address] [place] [address] Office Building One 2020-12-21 2020-12-21 Outpatient R BAYLEE [facility] [id number] Univers 08:45:00 08:45:00 WONDIFUL ity o f [facility] 2020-10-07 2020-10-07 Outpatient Tony MUNGUIA [facility] [id number] Univers 08:00:00 08:00:00 JAMARCUS ity [facility] 2020-06-17 2020-06-17 Outpatient Tony MUNGUIA [facility] [id number] Univers 10:00:00 10:00:00 JAMARCUS ity [facility] 2020-06-10 2020-06-10 Outpatient Tony MUNGUIA [facility] [id number] Univers 14:00:00 14:00:00 JAMARCUS ity [facility] 2020-03-25 2020-03-25 Outpatient Tony VAZQUEZ [facility] [id number] Univers 11:30:00 11:30:00 WONDIFUL ity o f [facility] 2020-02-12 2020-02-12 Outpatient Tony BARAJAS [facility] [id number] Univers 11:15:00 11:15:00 KELLIE quezada [facility] 2020-01-29 2020-01-29 Outpatient Tony BARAJAS [facility] [id number] Univers 11:15:00 11:15:00 KELLIE quezada [facility] 2020-01-22 2020-01-22 Outpatient Tony BARAJAS [facility] [id number] Univers 08:30:00 08:30:00 KELLIE quezada [facility] 2020-01-14 2020-01-14 Outpatient Tony VAZQUEZ [facility] [id number] Univers 09:00:00 09:00:00 WONDIFUL ity o f [facility] 2019-12-31 2019-12-31 [place] [place] [facility] [facility] [id number] [facility] 10:30:00 10:30:00 WONDIFUL ity o f [facility] 2019-08-21 2019-08-21 Emergency X MASTERSON, [facility] ERT [id number] Univers 12:05:58 16:27:00 PEDRITO quezada [facility] 2019-07-21 2019-07-21 Outpatient Tony VAZQUEZ [facility] [id number] Univers 16:00:00 16:00:00 WONDIFUL ity o f [facility] 2016-11-10 2016-11-11 Inpatient nullFlavo [facility] [id number] Memoria 10:43:26 15:35:00 [facility]10 2016-11-11 Inpatient nullFlavo [facility] [id number] Memoria 10:43:26 15:35:00 [facility] 2016-11-10 2016-11-11 Outpatient Arias, [id number] 05:43:26 10:35:00 Jass 8 2016-11-10 2016-11-11 Inpatient nullFlavo [facility] [id number] Memoria 05:43:26 10:35:00 tony Almodovar Results Test Description Test Time Test Comments Results Result Comments Source CELIAC SCREEN 2022-02-17 13:32:18 Test Item Value Reference Range Interpretation Comme nts Total IgA (test code = 0878099070) 810 U/mL 70-312 H Lab Interpretation (test code = 97378-6) [facility] [id number] 00:38:42 Test Item Value Reference Range Interpretation Comments HCV Ab (test code = 37152-5) Negative HCV Semi-Quantitative (test code = 44265-2) [facility] (IGG AND IGM)2022-02-17 00:38:42 Test Item Value Reference Range Interpretation Comments HAV Total (test code = 2285726350) Negative HAVT Semi-Quantitative (test code = 4837854359) [facility]ALPHA ULAAUCYQMWJ6339-19-84 00:25:04 Test Item Value Reference Range Interpretation Comments AFP (test code = 3.9 ng/mL See_Comment [Automated 4453689502) message] The system which generated this result transmitted reference range : <=7.5. The reference range was not used to interpret this result as normal/abnormal . BRET (test code = BRET) Biotin has been reported to cause a negative bias, interpret results relative to patient's use of biotin. Lab Interpretation Normal (test code = 37927-3) [facility]andHEPATITIS B SURFACE [id number] 00:22:01 Test Item Value Reference Range Interpretation Comments HBsAg Semi-Quantitative (test code = Negative Negative 5195-3) [facility]2 AG-AB WITH [id number] 20:01:08 Test Item Value Reference Range Interpretation Comments HIV Negative Negative Semi-quantitative (test code = 94445-0) BRET (test code = Non-reactive for HIV-1 BRET) antigen and HIV-1/HIV-2 antibodies. ?No laboratory evidence of HIV infection. ?Repeat in 2-4 weeks if acute HIV infection is suspected. [facility]ellandFERRITIN [id number] 19:55:26 Test Item Value Reference Range Interpretation Comments FERRITIN (test code = 861.0 ng/mL 18-464 H 4874235953) BRET (test code = BRET) Biotin has been reported to cause a negative bias, interpret results relative to patient's use of biotin. Lab Interpretation (test Abnormal code = 93922-7) [facility]andTHYROID STIMULATING [id number] 19:51:47 Test Item Value Reference Range Interpretation Comments TSH (test code = See_Comment [Automated message] [id number]) The system [employer] generated this result transmitted ref erence range: 0.45 - 4 .70 mIU/L. The refe rence range was not u sed to interpret this result as normal/abnor mal. Lab Interpretation (test Normal code = 07053-0) [facility]ellandIRON [id number] 19:29:57 Test Item Value Reference Range Interpretation Comments IRON (test code = 1029402926) 84 ug/dL 50-160 TIBC (test code = 8218738394) 164 ug/dL 250-410 L % FE SAT (test code = 1349159978) 51 % 20-50 H Lab Interpretation (test code = Abnormal 33344-2) [facility]. METABOLIC PANEL (45795)2022-02-16 19:20:37 Test Item Value Reference Range Interpretation Comments NA (test code = 134 mmol/L 135-145 L 0230873806) K (test code = 3.3 mmol/L 3.5-5 L 5292331586) CL (test code = 97 mmol/L 98-108 L 7436344140) CO2 TOTAL (test code = 27 mmol/L 23-31 3065684991) AGAP (test code = 2-16 0562967185) BUN (test code = 5 mg/dL 7-23 L 9050800216) GLUCOSE (test code = 85 mg/dL 70-110 5126368869) CREATININE (test code = 0.74 mg/dL 0.6-1.25 7586434188) TOTAL BILI (test code = 2.2 mg/dL 0.1-1.1 H 9884594506) CALCIUM (test code = 8.8 mg/dL 8.6-10.6 7563959703) T PROTEIN (test code = 7.5 g/dL 6.3-8.2 3754963723) ALBUMIN (test code = 3.3 g/dL 3.5-5 L 8347099957) ALK PHOS (test code = 123 U/L 34-122 H 0807468501) ALTv (test code = 43 U/L 5-50 1742-6) AST(SGOT) (test code = 122 U/L 13-40 H 9968392444) eGFR (test code = mL/min/1.73m2 1262627101) BRET (test code = BRET) Association of Glomerular Filtration Rate (GFR) and Staging of Kidney Disease* + --+ --+ ------+| GFR (mL/min/1.73 m2) ?| With Kidney Damage ?| ?Without Kidney Damage+ --------+ --------+ +| ?>90 ?| ?Stage one ?| ? Normal ?+ ---+ ---+ -------+| ?60-89 ?| ?Stage two ?| ? Decreased GFR ? + --+ --+ ------+| ?30-59 ?| ?Stage three ?| ? Stage three ? + --+ --+ ------+| ?15-29 ?| ?Stage four ? | ? Stage four ?+ ---+ ---+ -------+| ?<15 (or dialysis) ? ?| ?Stage five ? | ? Stage five ?+ ---+ ---+ -------+ *Each stage assumes the associated GFR level has been in effect for at least three months. ?Stages 1 to 5, with or without kidney disease, indicate chronic kidney disease. Notes: Determination of stages one and two (with eGFR >59mL/min/1.73 m2) requires estimation of kidney damage for at least three months as defined by structural or functional abnormalities of the kidney, manifested by either:Pathological abnormalities or Markers of kidney damage (including abnormalities in the composition of the blood or urine or abnormalities in imaging tests). Lab Interpretation Abnormal (test code = 58804-0) [facility]andCREATINE [id number] 19:20:16 Test Item Value Reference Range Interpretation Comments CK (test code = 0203788435) 23 U/L 33-194 L Lab Interpretation (test code = Abnormal 44564-2) [facility]andACTIVATED PARTIAL THRMPLAS [id number] 18:34:08 Test Item Value Reference Range Interpretation Comments APTT Patient (test See_Comment [Automat ed code = 3173-2) message] The system which generated this result transmitted reference range : 23 - 38 Seconds . The reference range was not used to interpr et this result as normal/abnormal . BRET (test code = BRET) The [facility] patient population mean normal value for aPTT is 30 seconds. Lab Interpretation Normal (test code = 39568-4) [facility]andProthrombin Time / [id number] 18:32:06 Test Item Value Reference Range Interpretation Comments PROTIME PATIENT (test See_Comment H [Auto mated message] code = 5964-2) The system wh ich generated this result transmitted ref erence range: 12.0 - 1 4.7 Seconds. The reference range was not used to int erpret this result as normal/abnormal . INR (test code = 6301-6) Nor mal INR <1.1; Warfarin Therap eutic range 2.0 to 3. 0 or 2.5 to 3.5, dep ending upon the indica tions. Lab Interpretation (test Abnormal code = 59857-0) [facility]andCBC WITH [id number] 18:21:03 Test Item Value Reference Range Interpretation Comments WBC (test code = See_Comment [Automated 6690-2) message] The sy stem which generated this result transmitted reference range : 4.20 - 10.70 10*3/?L. The reference range was not used to interpret this result as normal/abnormal . RBC (test code = See_Comment L [Automated 789-8) message] The sy stem which generated this result transmitted reference range : 4.26 - 5.52 10*6/?L. The reference range was not used to interpret this result as normal/abnormal . HGB (test code = 13.6 g/dL 12.2-16.4 718-7) HCT (test code = 38.4 % 38.4-49.3 4544-3) MCV (test code = 104.6 fL 81.7-95.6 H 787-2) MCH (test code = 37.1 pg 26.1-32.7 H 785-6) MCHC (test code = 35.4 g/dL 31.2-35 H 786-4) RDW-SD (test code = 46.8 fL 38.5-51.6 74382-3) RDW-CV (test code = 11.9 % 12.1-15.4 L 788-0) PLT (test code = See_Comment [Automated 777-3) message] The sy stem which generated this result transmitted reference range : 150 - 328 10*3/ ?L. The reference r khoa was not used to interpret this result as normal/abnormal . MPV (test code = 9.1 fL 9.8-13 L 00295-0) NRBC/100 WBC (test See_Comment [Automat ed code = 3465241663) message] The system which generated this result transmitted reference range : 0.0 - 10.0 /100 WBCs. The refer ence range was not u sed to interpret th is result as normal/abnormal . NRBC x10^3 (test code See_Comment [Auto mated = 8841441930) message] The s ystem which generated this result transmitted reference range : 10*3/?L. The reference range was not used to interpret this result as normal/abnormal . GRAN MAT (NEUT) % 62.2 % (test code = 770-8) IMM GRAN % (test code 0.50 % = 3452238775) LYMPH % (test code = 26.0 % 736-9) MONO % (test code = 8.4 % 5905-5) EOS % (test code = 1.1 % 713-8) BASO % (test code = 1.8 % 706-2) GRAN MAT x10^3(ANC) 3.54 10*3/uL 1.99-6.95 (test code = 7849345732) IMM GRAN x10^3 (test 0.03 10*3/uL 0-0.06 code = 3255951803) LYMPH x10^3 (test code 1.48 10*3/uL 1.09-3.23 = 731-0) MONO x10^3 (test code 0.48 10*3/uL 0.36-1.02 = 742-7) EOS x10^3 (test code = 0.06 10*3/uL 0.06-0.53 711-2) BASO x10^3 (test code 0.10 10*3/uL 0.01-0.09 H = 704-7) Lab Interpretation Abnormal (test code = 83352-7) [facility] QALLSUREFB5969-64-28 01:07:04 Test Item Value Reference Range Interpretation Comments POCT Creatinine (test code = 0.7 mg/dL 0.6-1.3 2893778029) Lab Interpretation (test code = Normal 17792-2) [facility]2017-06-17 10:56:00 Test Item Value Reference Range Interpretation Comments Lymphocyte % (test code = Lymphocyte %) 13.4 20.0-40.0 [facility]MrootlhLFZXKGJORC7749-71-30 10:56:00 Test Item Value Reference Range Interpretation Comments Eosinophil # (test code 0.4 See_Comment [Au tomated message] The = Eosinophil #) system which generated this result tra nsmitted reference range : <=4.0. The reference r khoa was not used to int erpret this result as normal/abnormal . [facility] HospitalDsefkgjIHHWESPDDD5843-02-52 10:56:00 Test Item Value Reference Range Interpretation Comments Monocyte % (test code = Monocyte %) 7.3 2.0-12.0 [facility] HospitalLkuuqjzWQJUWPJQNR8001-03-51 10:56:00 Test Item Value Reference Range Interpretation Comments Neutrophil % (test code = Neutrophil %) 78.5 45.0-75.0 [facility] HospitalNmdxerhXVJGVWMYCC6953-38-16 10:56:00 Test Item Value Reference Range Interpretation Comments Neutrophil # (test code = Neutrophil #) 9.3 1.5-8.1 [facility] HospitalDpxjsedPXYFMTGDXC5459-96-10 10:56:00 Test Item Value Reference Range Interpretation Comments AGAP (test code = AGAP) 12.0 10.0-20.0 [facility] HospitalMrsuhrxPZDYLMGIUW4372-33-83 10:56:00 Test Item Value Reference Range Interpretation Comments Carbon Dioxide Level (test code = 30 24-32 Carbon Dioxide Level) [facility] HospitalLkdnfgyKLMWCDGXWZ5618-49-39 10:56:00 Test Item Value Reference Range Interpretation Comments Chloride Level (test code = Chloride 102 95-109 Level) [facility] HospitalKxskmzbJZLHJDKJBN8197-05-26 10:56:00 Test Item Value Reference Range Interpretation Comments Potassium Level (test code = Potassium 4.0 3.5-5.1 Level) [facility] HospitalEotgtzcQAKWZIBYNZ3861-25-90 10:56:00 Test Item Value Reference Range Interpretation Comments Sodium Level (test code = Sodium Level) 140 135-145 [facility] HospitalBptzrtaXZOWFNDLOP5437-21-02 10:56:00 Test Item Value Reference Range Interpretation Comments Creatinine (test code = Creatinine) 1.06 0.50-1.40 [facility] HospitalSaqtvqkIFJCIJXWOY0284-10-86 10:56:00 Test Item Value Reference Range Interpretation Comments BUN (test code = BUN) 7 7-22 [facility] HospitalBqcofhyWRWEOKJESW7571-21-59 10:56:00 Test Item Value Reference Range Interpretation Comments Glucose Lvl (test code = Glucose Lvl) 98 70-99 [facility] HospitalUabmsxgRUZOJOPSMC0933-06-98 10:56:00 Test Item Value Reference Range Interpretation Comments eGFR (test code = eGFR) 81 [facility] HospitalVoardisTHJRWVSSIF4045-55-03 10:56:00 Test Item Value Reference Range Interpretation Comments Calcium Level (test code = Calcium 8.2 8.5-10.5 Level) [facility] HospitalYfpszpdRTPGZBPDGT3508-14-20 10:56:00 Test Item Value Reference Range Interpretation Comments Results (test code = Reported (11/11/16 5:56 Results) AM) [facility] HospitalJfdnbqfLGBFHIWFXG5789-38-46 10:56:00 Test Item Value Reference Range Interpretation Comments MCH (test code = MCH) 32.1 pg 27.0-31.0 [facility] HospitalQsiqipmSZOYIRQFWM3204-62-02 10:56:00 Test Item Value Reference Range Interpretation Comments MCHC (test code = MCHC) 33.1 32.0-36.0 [facility] HospitalKoondumNERDZYTXIN0936-62-01 10:56:00 Test Item Value Reference Range Interpretation Comments MPV (test code = MPV) 7.6 7.4-10.4 [facility] HospitalMfdtpagAFYVUNEEXW6478-85-62 10:56:00 Test Item Value Reference Range Interpretation Comments RDW (test code = RDW) 13.6 11.5-14.5 [facility] HospitalBycucgnFOXOOHXRJZ4011-87-21 10:56:00 Test Item Value Reference Range Interpretation Comments Platelet (test code = Platelet) 210 133-450 [facility] HospitalZhzrqwjCKOFZRECXQ2786-33-90 10:56:00 Test Item Value Reference Range Interpretation Comments MCV (test code = MCV) 96.9 80.0-94.0 [facility] HospitalNpxderwNMXTEQBDGL9892-92-79 10:56:00 Test Item Value Reference Range Interpretation Comments Hemoglobin (test code = Hemoglobin) 15.9 14.0-18.0 [facility] HospitalQkednpmGPJPUGRWKG4607-65-53 10:56:00 Test Item Value Reference Range Interpretation Comments Hematocrit (test code = Hematocrit) 47.9 42.0-54.0 [facility] HospitalDrfkozzTGICXFAUYP6060-96-28 10:56:00 Test Item Value Reference Range Interpretation Comments Red Blood Cell Count (test code = Red 4.94 4.70-6.10 Blood Cell Count) [facility] HospitalIlxkaclCVUETLWXEM7200-53-02 10:56:00 Test Item Value Reference Range Interpretation Comments White Blood Count (test code = White 11.8 3.7-10.4 Blood Count) [facility] HospitalQnnfzkeMCEWSTAOLI8640-60-15 10:56:00 Test Item Value Reference Range Interpretation Comments Results (test code = Reported (11/11/16 5:56 Results) AM) [facility] HospitalGauasmfDTHWDAAYKE3561-90-08 10:56:00 Test Item Value Reference Range Interpretation Comments RDW (test code = RDW) 13.6 11.5-14.5 [facility] HospitalBglribaXPIMLKALEF7463-62-01 10:56:00 Test Item Value Reference Range Interpretation Comments Platelet (test code = Platelet) 210 133-450 [facility] HospitalEjqtjggMDXGOFLBHW5066-96-00 10:56:00 Test Item Value Reference Range Interpretation Comments MCV (test code = MCV) 96.9 80.0-94.0 [facility] HospitalLyfcljvWXKWWGLEKA6064-70-68 10:56:00 Test Item Value Reference Range Interpretation Comments Hemoglobin (test code = Hemoglobin) 15.9 14.0-18.0 [facility] HospitalPupfcxvXLMOYVOXQN5681-45-11 10:56:00 Test Item Value Reference Range Interpretation Comments Hematocrit (test code = Hematocrit) 47.9 42.0-54.0 [facility] HospitalNmkqfacEPYZKZZDDU4733-73-11 10:56:00 Test Item Value Reference Range Interpretation Comments Red Blood Cell Count (test code = Red 4.94 4.70-6.10 Blood Cell Count) [facility] HospitalTzsscbeNDQIWPOGWK9159-89-43 10:56:00 Test Item Value Reference Range Interpretation Comments White Blood Count (test code = White 11.8 3.7-10.4 Blood Count) [facility] HospitalJgueijuMWERHNEITF7691-97-68 10:56:00 Test Item Value Reference Range Interpretation Comments Results (test code = Reported (11/11/16 5:56 Results) AM) [facility] HospitalAjmrodgQNYVFKYBBD6677-68-32 10:56:00 Test Item Value Reference Range Interpretation Comments Monocyte # (test code = 0.9 See_Comment [Au tomated message] The Monocyte #) system which ge nerated this result tra nsmitted reference range : <=0.8. The reference r khoa was not used to int erpret this result as normal/abnormal . [facility] HospitalBumdsdhMYIOUEUHZK4684-03-59 10:56:00 Test Item Value Reference Range Interpretation Comments Eosinophil % (test code 0.0 See_Comment [Au tomated message] The = Eosinophil %) system which generated this result tra nsmitted reference range : <=0.5. The reference r khoa was not used to int erpret this result as normal/abnormal . [facility] HospitalMgxunujZSLKLSLPXH1903-21-39 10:56:00 Test Item Value Reference Range Interpretation Comments Lymphocyte # (test code = Lymphocyte #) 1.6 1.0-5.5 [facility] HospitalWksbyzpDSDQMUOSTF1605-65-38 10:56:00 Test Item Value Reference Range Interpretation Comments Basophil # (test code = 0.0 See_Comment [Au tomated message] The Basophil #) system which ge nerated this result tra nsmitted reference range : <=0.2. The reference r khoa was not used to int erpret this result as normal/abnormal . [facility] HospitalPgtbrooUXOPDPCJLL1525-95-29 10:56:00 Test Item Value Reference Range Interpretation Comments Basophil % (test code = 0.4 See_Comment [Au tomated message] The Basophil %) system which ge nerated this result tra nsmitted reference range : <=1.0. The reference r khoa was not used to int erpret this result as normal/abnormal . [facility] HospitalFkjprzaEHKWNHDGUE1332-73-17 10:56:00 Test Item Value Reference Range Interpretation Comments Lymphocyte % (test code = Lymphocyte %) 13.4 20.0-40.0 [facility] HospitalQckomcwJSBGXTJYKP6583-87-43 10:56:00 Test Item Value Reference Range Interpretation Comments Eosinophil # (test code 0.4 See_Comment [Au tomated message] The = Eosinophil #) system which generated this result tra nsmitted reference range : <=4.0. The reference r khoa was not used to int erpret this result as normal/abnormal . [facility] HospitalVnvsrxcBUCJCTFJSS5562-09-98 10:56:00 Test Item Value Reference Range Interpretation Comments Monocyte % (test code = Monocyte %) 7.3 2.0-12.0 [facility] HospitalUfgqlnfCSKMEYGGLX1090-71-71 10:56:00 Test Item Value Reference Range Interpretation Comments Neutrophil % (test code = Neutrophil %) 78.5 45.0-75.0 [facility] HospitalYdirpnkVAFVQLUQUD6761-61-42 10:56:00 Test Item Value Reference Range Interpretation Comments Neutrophil # (test code = Neutrophil #) 9.3 1.5-8.1 [facility] HospitalNaxowaxXNKNDXSAMJ7868-76-37 10:56:00 Test Item Value Reference Range Interpretation Comments AGAP (test code = AGAP) 12.0 10.0-20.0 [facility] HospitalUhcckskGMELDDHSYY0172-80-02 10:56:00 Test Item Value Reference Range Interpretation Comments Carbon Dioxide Level (test code = 30 24-32 Carbon Dioxide Level) [facility] HospitalUsdgibsMGNNSJBUKA6489-18-74 10:56:00 Test Item Value Reference Range Interpretation Comments Chloride Level (test code = Chloride 102 95-109 Level) [facility] HospitalDaifvioSSTHKKNASO2399-30-14 10:56:00 Test Item Value Reference Range Interpretation Comments Potassium Level (test code = Potassium 4.0 3.5-5.1 Level) [facility] HospitalMzmxswjFJCPFBXHBV7561-69-84 10:56:00 Test Item Value Reference Range Interpretation Comments Sodium Level (test code = Sodium Level) 140 135-145 [facility] HospitalGgotrtzRXBLUJAJZF6792-73-98 10:56:00 Test Item Value Reference Range Interpretation Comments Creatinine (test code = Creatinine) 1.06 0.50-1.40 [facility] HospitalHrkhtsoMSPZQXYHUS1729-07-16 10:56:00 Test Item Value Reference Range Interpretation Comments BUN (test code = BUN) 7 7-22 [facility] HospitalQoxyvwmQGUSTYTKCE2201-08-09 10:56:00 Test Item Value Reference Range Interpretation Comments Glucose Lvl (test code = Glucose Lvl) 98 70-99 [facility] HospitalBulesanLDJRPPPIOQ6000-42-52 10:56:00 Test Item Value Reference Range Interpretation Comments eGFR (test code = eGFR) 81 [facility] HospitalSdleantHSPBJVRPWM9339-34-47 10:56:00 Test Item Value Reference Range Interpretation Comments Calcium Level (test code = Calcium 8.2 8.5-10.5 Level) [facility] HospitalZqektvmIZUYNJQJKF3790-19-85 10:56:00 Test Item Value Reference Range Interpretation Comments Results (test code = Reported (11/11/16 5:56 Results) AM) [facility] HospitalJwkcwowXHMKROZRZW7882-16-06 10:56:00 Test Item Value Reference Range Interpretation Comments MCH (test code = MCH) 32.1 pg 27.0-31.0 [facility] HospitalEmukhcxDCSRESNEDA6489-44-28 10:56:00 Test Item Value Reference Range Interpretation Comments MCHC (test code = MCHC) 33.1 32.0-36.0 [facility] HospitalZfuktcvPPOBMNGJTL5046-35-29 10:56:00 Test Item Value Reference Range Interpretation Comments MPV (test code = MPV) 7.6 7.4-10.4 [facility] HospitalTcafaxjVMZNYUNLCL6313-91-38 10:56:00 Test Item Value Reference Range Interpretation Comments Monocyte # (test code = 0.9 See_Comment [Au tomated message] The Monocyte #) system which ge nerated this result tra nsmitted reference range : <=0.8. The reference r khoa was not used to int erpret this result as normal/abnormal . [facility] HospitalXtjrkudNNXXONZICW1978-80-04 10:56:00 Test Item Value Reference Range Interpretation Comments Eosinophil % (test code 0.0 See_Comment [Au tomated message] The = Eosinophil %) system which generated this result tra nsmitted reference range : <=0.5. The reference r khoa was not used to int erpret this result as normal/abnormal . [facility] HospitalSrrkoukKOUWITHRFO5035-95-13 10:56:00 Test Item Value Reference Range Interpretation Comments Lymphocyte # (test code = Lymphocyte #) 1.6 1.0-5.5 [facility] HospitalUhrlrtwLHVHMILHNZ2677-99-02 10:56:00 Test Item Value Reference Range Interpretation Comments Basophil # (test code = 0.0 See_Comment [Au tomated message] The Basophil #) system which ge nerated this result tra nsmitted reference range : <=0.2. The reference r khoa was not used to int erpret this result as normal/abnormal . [facility] HospitalGdgabckPARALFRPSC4147-40-79 10:56:00 Test Item Value Reference Range Interpretation Comments Basophil % (test code = 0.4 See_Comment [Au tomated message] The Basophil %) system which ge nerated this result tra nsmitted reference range : <=1.0. The reference r khoa was not used to int erpret this result as normal/abnormal . Elenita Almodovar"
[2023-01-20] MEDS ORDERED: NA CHLORIDE 0.9% 1,000 ML ONE (19:21)
[2023-01-20 19:26] LABS: Absolute Lymphocytes (CBC) 0.9 K/uL (0.7-4.9); Hematocrit 31.4 % (39.6-49.0); Lymphocytes % 24.7 % (15.3-44.8); MCV 107.6 fL (80-100); MPV 8.9 fL (7.6-11.3); Platelets 36 thou/uL (152-406); RBC Red Blood Cell Count 2.92 M/uL (4.33-5.43)
[2023-01-20 19:29] LABS: Protime INR 1.36
[2023-01-20 19:42] LABS: ALT/SGPT 57 U/L (16-61); AST/SGOT 181 U/L (15-37); Albumin 2.9 g/dL (3.4-5.0); Alkaline Phosphatase 105 U/L (45-117); BUN Blood Urea Nitrogen 5 mg/dL (7-18); Bicarbonate 17 mEq/L (21-32); Bilirubin Direct 1.6 mg/dL (0-0.2); Bilirubin Indirect, Calculated 1.7 mg/dL (0.2-0.8); Bilirubin Total 3.3 mg/dL (0.2-1.0); Glomerular Filtration Rate 95 ml/min (=/>90); Glucose Level 89 mg/dL (74-106); Magnesium 1.7 mg/dL (1.6-2.4); Potassium 2.9 mEq/L (3.5-5.1); Protein, Total 7.7 g/dL (6.4-8.2); Sodium Level 131 mEq/L (136-145)
[2023-01-20] MEDS ORDERED: LORazepam 2 MG/ML VIAL ONE ×2 (19:42→21:03)
--- NOTE | 2023-01-20 20:19 | RAD REPORT ---
EXAM DESCRIPTION: CT - Head Brain Wo Cont - 01/20/2023 8:14 pm CLINICAL HISTORY: SEIZURE COMPARISON: No comparisons TECHNIQUE: All CT scans are performed using dose optimization technique as appropriate and may inclu de automated exposure control or mA/KV adjustment according to patient size. FINDINGS: No intracranial hemorrhage, hydrocephalus or extra-axial fluid collection.No areas of brai n edema or evidence of midline shift. Age advanced cerebral atrophy. The paranasal sinuses and mastoids are clear. The calvarium is intact. IMPRESSION: No acute intracranial abnormality.
[2023-01-20] MEDS ORDERED: METOCLOPRAMIDE 10 MG/2mL INJ ONE (20:20)
[2023-01-20] MEDS ORDERED: KCL 20 MEQ/100 mL IVPB 100 ML IV ONE (20:21)
--- NOTE | 2023-01-20 20:21 | EDPHYS ---
Physician Documentation [facility] Name: Ovidio Damon Age: 57 yrs Sex: Male : 1965 Arrival Date: 01/20/2023 Time: 18:52 Bed 5 Private MD: ED Physician Isidoro Foley HPI: 01/20 19:05 This 57 yrs old Unknown Male presents to ER via EMS with complaints of Alcohol cp Withdrawal, Seizure. 19:05 The patient presents after having a single isolated seizure, that lasted 1 minute(s). cp 19:05 Character of seizure(s): Loss of consciousness: the patient experienced loss of cp consciousness, Motor activity: generalized, shaking all over, Incontinence: none. Seizure onset: 1 hour(s) ago. Seizure Hx: Cause: alcohol abuse history, Seizure medications: none. Associated injury: The patient did not suffer any apparent associated injury. EMS care: IV fluids, thiamine. Historical: - Allergies: 19:01 No Known Allergies; ld1 - Home Meds: 19:01 None [Active]; ld1 - PMHx: 19:01 None; ld1 - Immunization history:: Adult Immunizations up to date. - Social history:: Smoking status: Patient denies any tobacco usage or history of. Patient/guardian denies using alcohol. ROS: 19:10 Constitutional: Negative for body aches, chills, fever. cp 19:10 Eyes: Negative for injury, pain, redness, and discharge. cp 19:10 ENT: Negative for drainage from ear(s), ear pain, sore throat, difficulty swallowing, difficulty handling secretions. 19:10 Cardiovascular: Negative for chest pain. 19:10 Respiratory: Negative for cough, shortness of breath, wheezing. 19:10 Abdomen/GI: Negative for abdominal pain, vomiting, diarrhea, constipation. 19:10 : Negative for urinary symptoms, flank pain. 19:10 Neuro: Positive for history of seizure, Negative for headache, weakness. 19:10 All other systems are negative. Exam: 19:15 Constitutional: The patient appears in no acute distress, alert, awake, cp non-diaphoretic, non-toxic, well developed, well nourished. 19:15 Head/Face: Normocephalic, atraumatic. cp 19:15 Eyes: Periorbital structures: appear normal, Pupils: equal, round, and reactive to light and accomodation, Extraocular movements: intact throughout, Conjunctiva: injected, in the left eye, Lids and lashes: drainage, from the left eye. 19:15 ENT: External ear(s): are unremarkable, Nose: is normal, Mouth: Lips: moist, Oral mucosa: pink and intact, moist, Posterior pharynx: is normal, airway is patent, no erythema, no exudate. 19:15 Neck: C-spine: vertebral tenderness, is not appreciated, crepitus, is not appreciated, ROM/movement: is normal, is supple, without pain, no range of motions limitations. 19:15 Chest/axilla: Inspection: normal, Palpation: is normal, no crepitus, no tenderness. 19:15 Cardiovascular: Rate: normal, Rhythm: regular, Edema: is not appreciated, JVD: is not appreciated. 19:15 Respiratory: the patient does not display signs of respiratory distress, Respirations: normal, no use of accessory muscles, no retractions, labored breathing, is not present, Breath sounds: are clear throughout, no decreased breath sounds, no stridor, no wheezing. 19:15 Abdomen/GI: Inspection: abdomen appears normal, Palpation: abdomen is soft and non-tender, in all quadrants. 19:15 Back: pain, is absent, ROM is normal. 19:15 Neuro: Orientation: to person, time, situation, Mentation: able to follow commands, slow to respond, Motor: moves all fours, strength is normal, Sensation: no obvious gross deficits. Vital Signs: 18:59 BP 137 / 64; Pulse 80; Resp 18; Temp 98.6(O); Pulse Ox 98% on R/A; Weight 79.38 kg; ld1 Height 5 ft. 11 in. ; Pain 0/10; 19:40 BP 159 / 91; Pulse 83; Resp 18 S; Temp 98; Pulse Ox 99% on R/A; jw7 21:15 BP 143 / 75; Pulse 76; Resp 19 S; Pulse Ox 98% on R/A; jw7 18:59 Body Mass Index 24.41 (79.38 kg, 180.34 cm) ld1 18:59 Pain Scale: Adult ld1 [place] Coma Score: 19:01 Eye Response: spontaneous(4). Motor Response: obeys commands(6). Verbal Response: ld1 oriented(5). Total: 15. MDM: 19:02 Patient medically screened. 20:25 Data reviewed: vital signs, nurses notes, lab test result(s), EKG, radiologic studies, cp CT scan, plain films. 20:25 Consideration of Admission/Observation Patient was admitted/placed on observation. cp Management of patient was discussed with the following: Hospitalist: Carmelita Brice, [employer] consulted and patient discussed. Care significantly affected by the following chronic conditions: alcohol use. Counseling: I had a detailed discussion with the patient and/or guardian regarding the historical points, exam findings, and any diagnostic results supporting the discharge/admit diagnosis, lab results, radiology results, the need for further work-up and treatment in the hospital. Response to treatment: the patient's symptoms have mildly improved after treatment. 01/20 19:03 Order name: Acetaminophen; Complete Time: 20:01 01/20 19:03 Order name: Basic Metabolic Panel; Complete Time: 20: 01/20 20:02 Interpretation: Normal except: NA 131; K 2.9; CO2 17; ANION GAP 18.9; BUN 5; CA 7.5. 01/20 19:03 Order name: CBC with Diff 01/20 19:03 Order name: ETOH Level; Complete Time: 20:01 01/20 19:03 Order name: Hepatic Function; Complete Time: 20: 01/20 20:01 Interpretation: Normal except: AST 181; BILIT 3.3; BILID 1.6; IBILI, CALC 1.7; ALB 2.9; cp GLOB 4.8; A/G 0.6. 01/20 19:03 Order name: PT-INR; Complete Time: 20:01 01/20 19:03 Order name: Ptt, Activated; Complete Time: 20:01 01/20 19:03 Order name: Salicylate; Complete Time: 20:01 01/20 19:03 Order name: Urinalysis w/ reflexes 01/20 19:03 Order name: Urine Drug Screen 01/20 19:03 Order name: Magnesium; Complete Time: 20:01 01/20 20:26 Order name: CBC Smear Scan EDFL 01/20 20:40 Order name: Magnesium EDFL 01/20 20:40 Order name: Basic Metabolic Panel EDMS 01/20 20:40 Order name: Basic Metabolic Panel EDMS 01/20 20:40 Order name: Basic Metabolic Panel EDMS 01/20 20:40 Order name: Basic Metabolic Panel EDMS 01/20 20:40 Order name: CBC with Automated Diff EDMS 01/20 20:40 Order name: CBC with Automated Diff EDMS 01/20 20:40 Order name: CBC with Automated Diff EDMS 01/20 20:40 Order name: CBC with Automated Diff EDMS 01/20 19:03 Order name: CT Head Brain wo Cont; Complete Time: 20:20 cp 01/20 19:03 Order name: EKG; Complete Time: 19:04 cp 01/20 20:40 Order name: Regular EDMS 01/20 19:03 Order name: EKG - Nurse/Tech; Complete Time: 19:42 cp 01/20 19:03 Order name: IV Saline Lock; Complete Time: 19:08 cp 01/20 19:03 Order name: Labs collected and sent; Complete Time: 19:42 cp 01/20 19:03 Order name: Suicide Screening ([place]); Complete Time: 19:49 cp Administered Medications: 19:42 Drug: NS 0.9% IV 1000 ml Route: IV; Rate: 1 bolus; Site: left antecubital; jw7 21:22 Follow up: Response: No adverse reaction; No change in condition; IV Status: Completed jw infusion; IV Intake: 1000ml 19:42 Drug: Ativan IVP 1 mg Route: IVP; Site: left antecubital; jw 21:23 Follow up: Response: No adverse reaction; No change in condition [facility] 21:12 Not Given (Other Intervention Used): Precedex 3 mcg/kg IV at calculated rate once; administer over 10 mins 21:14 Drug: Potassium Chloride IV 20 mEq Route: IV; Rate: calculated rate; Site: left [facility] antecubital; 21:47 Follow up: Response: No adverse reaction; IV Status: Infusion continued upon admission; as6 IV Intake: 15ml 21:14 Drug: metoCLOPramide IVP 10 mg Route: IVP; Site: left antecubital; jw7 21:47 Follow up: Response: No adverse reaction as6 21:14 Drug: Ativan IVP 2 mg Route: IVP; Site: left antecubital; jw7 21:47 Follow up: Response: No adverse reaction as6 Disposition: 01/21 00:45 Co-signature as Attending Physician, Isidoro Foley DO I was immediately available on-site ms3 in the Emergency Department for consultation in the care of the patient. Disposition Summary: 01/20/23 20:20 Hospitalization Ordered Hospitalization Status: Inpatient Admission cp Provider: Hoang Sanchez cp Location: Intensive Care Unit cp Condition: Stable cp Problem: new cp Symptoms: have improved cp Bed/Room Type: Standard cp Room Assignment: 6-(01/20/23 21:31) kj1 Diagnosis - Alcohol dependence with withdrawal cp - Other seizures cp - Hypokalemia cp Forms: - Medication Reconciliation Form cp - SBAR form cp - Leadership Thank You Letter cp Signatures: Dispatcher [employer] Bettina Arambula RN RN mw Tim Soares PA PA cp Juliana Bray kj1 Isidoro Foley DO DO ms3 Mireya Foley RN RN ld1 Sofia Drew RN RN jwMaribel Pate RN, Ashby RN as6 Corrections: (The following items were deleted from the chart) 01/20 20:28 20:20 cp mw 21:31 20:28 3- mw kj1
--- NOTE | 2023-01-20 20:21 | ER ---
Nurse's Notes [facility] Name: Ovidio Damon Age: 57 yrs Sex: Male : 1965 Arrival Date: 01/20/2023 Time: 18:52 Bed 5 Private MD: Diagnosis: Alcohol dependence with withdrawal;Other seizures;Hypokalemia Presentation: 01/20 18:59 Chief complaint: EMS states: toned out to patient home for seizure. Pt reports sitting ld1 out by pool - seizure occurred, did not hit head. States "I think I am with drawling from alcohol, I haven't had beer in 2-3 days.". Coronavirus screen: At this time, the client does not indicate any symptoms associated with coronavirus-19. Ebola Screen: No symptoms or risks identified at this time. Initial Sepsis Screen: Does the patient meet any 2 criteria? No. Patient's initial sepsis screen is negative. Does the patient have a suspected source of infection? No. Patient's initial sepsis screen is negative. Risk Assessment: Do you want to hurt yourself or someone else? Patient reports no desire to harm self or others. Onset of symptoms was January 20, 2023. 18:59 Method Of Arrival: EMS: [facility] ld1 18:59 Acuity: JUVENTINO 3 ld1 Triage Assessment: 19:01 General: Appears in no apparent distress. comfortable, Behavior is calm, cooperative, ld1 appropriate for age. Pain: Denies pain. EENT: No signs and/or symptoms were reported regarding the EENT system. Neuro: Level of Consciousness is awake, alert, obeys commands, Oriented to person, place, time, situation, Seizure activity reported prior to arrival. Cardiovascular: Capillary refill < 3 seconds Patient's skin is warm and dry. Cardiovascular:. Respiratory: Airway is patent Respiratory effort is even, unlabored. GI: Abdomen is flat, non-distended. : No signs and/or symptoms were reported regarding the genitourinary system. Derm: No signs and/or symptoms reported regarding the dermatologic system. Musculoskeletal: No signs and/or symptoms reported regarding the musculoskeletal system. Historical: - Allergies: 19:01 No Known Allergies; ld1 - Home Meds: 19: None [Active]; ld1 - PMHx: 19:01 None; ld1 - Immunization history:: Adult Immunizations up to date. - Social history:: Smoking status: Patient denies any tobacco usage or history of. Patient/guardian denies using alcohol. Screenin:38 Abuse screen: Denies threats or abuse. Denies injuries from another. jw7 19:39 [facility] ED Fall Risk Assessment (Adult) History of falling in the last 3 months, jw7 including since admission No falls in past 3 months (0 pts) Score/Fall Risk Level 0 - 2 = Low Risk. Nutritional screening: No deficits noted. Tuberculosis screening: No symptoms or risk factors identified. Assessment: 19:35 General: Appears in no apparent distress. comfortable, Behavior is calm, cooperative. jw7 Pain: Denies pain. Neuro: No deficits noted. Hansen Agitation-Sedation Scale (RASS): 0 - Alert and Calm Level of Consciousness is awake, alert, obeys commands, Oriented to person, place, time, situation. Cardiovascular: No deficits noted. Denies chest pain, Capillary refill < 3 seconds Clubbing of nail beds is absent JVD is absent Patient's skin is warm and dry. Respiratory: No deficits noted. Airway is patent Trachea midline Respiratory effort is even, unlabored, Respiratory pattern is regular, symmetrical. GI: No deficits noted. No signs and/or symptoms were reported involving the gastrointestinal system. Abdomen is flat, non-distended. : No deficits noted. No signs and/or symptoms were reported regarding the genitourinary system. EENT: No deficits noted. No signs and/or symptoms were reported regarding the EENT system. Derm: No deficits noted. No signs and/or symptoms reported regarding the dermatologic system. Skin is intact, is healthy with good turgor, Skin is dry, Skin is normal, Skin temperature is warm. Musculoskeletal: No deficits noted. No signs and/or symptoms reported regarding the musculoskeletal system. Circulation, motion, and sensation intact. Range of motion: intact in all extremities. 20:30 Reassessment: Patient appears in no apparent distress at this time. No changes from jw7 previously documented assessment. Patient and/or family updated on plan of care and expected duration. Pain level reassessed. Patient is alert, oriented x 3, equal unlabored respirations, skin warm/dry/pink. Patient denies pain at this time. 21:22 Reassessment: Patient appears in no apparent distress at this time. No changes from jw7 previously documented assessment. Patient and/or family updated on plan of care and expected duration. Pain level reassessed. Patient is alert, oriented x 3, equal unlabored respirations, skin warm/dry/pink. Patient denies pain at this time. Vital Signs: 18:59 BP 137 / 64; Pulse 80; Resp 18; Temp 98.6(O); Pulse Ox 98% on R/A; Weight 79.38 kg; ld1 Height 5 ft. 11 in. ; Pain 0/10; 19:40 BP 159 / 91; Pulse 83; Resp 18 S; Temp 98; Pulse Ox 99% on R/A; jw7 21:15 BP 143 / 75; Pulse 76; Resp 19 S; Pulse Ox 98% on R/A; jw7 18:59 Body Mass Index 24.41 (79.38 kg, 180.34 cm) ld1 18:59 Pain Scale: Adult ld1 [place] Coma Score: 19:01 Eye Response: spontaneous(4). Motor Response: obeys commands(6). Verbal Response: ld1 oriented(5). Total: 15. ED Course: 18:56 Patient arrived in ED. ld1 19:01 Triage completed. ld1 19:01 Arm band placed on right wrist. ld1 19:02 Tim Soares PA is PHCP. cp 19:02 Isidoro Foley DO is Attending Physician. cp 19:07 Sofia Drew RN is Primary Nurse. jw7 19:39 Maintain EMS IV. Dressing intact. Good blood return noted. Site clean \\T\\ dry. Gauge \\T\\ jw 7 site: 18g LAC. 19:40 Patient has correct armband on for positive identification. Bed in low position. Call jw7 light in reach. Side rails up X2. Seizure precautions initiated. 19:42 Initial lab(s) drawn, by me, sent to lab. EKG done, by ED staff, reviewed by Tim CASTRO. 19:42 Acetaminophen Sent. jw7 19:42 Basic Metabolic Panel Sent. jw7 19:42 Hepatic Function Sent. jw7 19:42 Salicylate Sent. jw7 19:42 Magnesium Sent. jw7 20:15 CT Head Brain wo Cont In Process Unspecified. EDMS 20:19 Hoang Sanchez MD is Hospitalizing Provider. cp 21:47 No provider procedures requiring assistance completed. Patient admitted, IV remains in as6 place. 21:48 Provided Education on: need for admit. as6 Administered Medications: 19:42 Drug: NS 0.9% IV 1000 ml Route: IV; Rate: 1 bolus; Site: left antecubital; jw7 21:22 Follow up: Response: No adverse reaction; No change in condition; IV Status: Completed jw7 infusion; IV Intake: 1000ml 19:42 Drug: Ativan IVP 1 mg Route: IVP; Site: left antecubital; jw7 21:23 Follow up: Response: No adverse reaction; No change in condition jw7 21:12 Not Given (Other Intervention Used): Precedex 3 mcg/kg IV at calculated rate once; kl administer over 10 mins 21:14 Drug: Potassium Chloride IV 20 mEq Route: IV; Rate: calculated rate; Site: left jw7 antecubital; 21:47 Follow up: Response: No adverse reaction; IV Status: Infusion continued upon admission; as6 IV Intake: 15ml 21:14 Drug: metoCLOPramide IVP 10 mg Route: IVP; Site: left antecubital; jw7 21:47 Follow up: Response: No adverse reaction as6 21:14 Drug: Ativan IVP 2 mg Route: IVP; Site: left antecubital; jw7 21:47 Follow up: Response: No adverse reaction as6 Medication: 21:47 VIS not applicable for this client. as6 Intake: 21:22 IV: 1000ml; Total: 1000ml. jw7 21:47 IV: 15ml; Total: 1015ml. as6 Outcome: 20:20 Decision to Hospitalize by Provider. cp 21:47 Admitted to ICU accompanied by nurse, family with patient, via stretcher, room 6, on as6 monitor, with chart. 21:47 Condition: stable 21:47 Instructed on the need for admit. 21:48 Patient left the ED. as6 Signatures: Dispatcher [employer] EDMS Tim Soares PA PA cp Mireya Foley RN RN ld1 Hoang Cyr RN RN as6 Sofia Drew RN RN jw7 Maribel Horvath RN
[2023-01-20] MEDS ORDERED: NA CHLORIDE 0.9% 500 ML ONE (20:22)
[2023-01-20 20:25] LABS: Blood Morphology Comment NOTED (NOT SEEN); Macrocytosis 1+; Platelet Estimate DECR; White Blood Cell Scan OK (OK)
--- NOTE | 2023-01-20 20:30 | P.HP ---
Certification for Inpatient Patient admitted to: Inpatient With expected LOS: <2 Midnights Patient will require the following post-hospital care: None Practitioner: I am a practitioner with admitting privileges, knowledge of patient current condition, hospital course, and medical plan of care. Services: Services provided to patient in accordance with Admission requirements found in Title 42 Section 412.3 of the Code of Federal Regulations Patient History Date of Service: 01/20/23 History of Present Illness: 57-year-old male with a history of cirrhosis, alcohol use presents to the emergency room with seizure. He reports last drink of alcohol 2 days ago. He reports associated generalized tremors, incontinence, that started today. He reported seizure prior to arrival while out at the pool. Bystander called EMS. He reports symptoms made worse by alcohol cessation. Verbalizing tremors. He reports to initiating alcohol detox. He denies fever, cough, nausea vomiting, s hortness of breath chest pain. Plan to admit to ICU for alcohol withdrawals, hypokalemia, seizures. He reports history of cirrhosis, seen Dr. Koch previously. No reported EGD. No reported rectal bleeding or hematemesis. ER evaluation 9 BP 137 / 64; Pulse 80; Resp 18; Temp 98.6(O); Pulse Ox 98% on R/A; Weight 79.38 kg; ld1 Height 5 ft. 11 in. ; Pain 0/10 GCS 15, laboratory evaluation WBCs microcytic anemia 10.8, 31.4, platelet count 36, thrombocytopenia sodium 131, hypokalemia 2.9, UA, UDS negative, ordered, CT of the head IMPRESSION: No acute intracranial abnormality Allergies No Known Allergies Allergy (Verified 02/21/22 08:09) Home Medications: Furosemide 20 mg PO DAILY 02/21/22 Lactulose 10 gm PO DAILY 02/21/22 Ondansetron [Zofran] 4 mg PO Q8HR PRN 02/21/22 Spironolactone 25 mg PO DAILY 02/21/22 Tramadol HCl [Ultram] 50 mg PO Q4HR PRN 02/21/22 carvediloL [Carvedilol] 6.25 mg PO BID 02/21/22 Review of Systems 10-point ROS is otherwise unremarkable Physical Examination - Physical Exam General: Alert, In no apparent distress, Oriented x3, Other (Tremors) HEENT: Atraumatic, Normocephalic, PERRLA Neck: Supple, 2+ carotid pulse no bruit, JVD not distended Respiratory: Clear to auscultation bilaterally, Normal air movement Cardiovascular: No edema, Normal pulses, Regular rate/rhythm, Normal S1 S2 Gastrointestinal: Normal bowel sounds, Soft and benign Musculoskeletal: No clubbing, No swelling Integumentary: No rashes, No breakdown Neurological: Normal speech, Normal strength at 5/5 x4 extr, Other ( tremors) - Studies Laboratory Data (last 24 hrs) 01/20/23 01/20/23 01/20/23 19:15 19:15 19:15 WBC 3.70 L Hgb 10.8 L Hct 31.4 L Plt Count 36 L PT 15.0 H INR 1.36 APTT 36.0 Sodium 131 L Potassium 2.9 L BUN 5 L Creatinine 0.94 Glucose 89 Magnesium 1.7 Total Bilirubin 3.3 H AST 181 H ALT 57 Alkaline Phosphatase 105 Assessment and Plan - Plan Assessment plan Seizures with alcohol withdrawals Alcohol abuse Hypokalemia Microcytic anemia Thrombocytopenia History of hypertension DVT prophylaxis Assessment plan alcohol withdrawal with Seizures Alcohol abuse Admitted to ICU on Precedex, CIWA protocol, as needed Ativan for seizures, BP 137 / 64; Pulse 80; Resp 18; Temp 98.6(O); Pulse Ox 98% CT of the head IMPRESSION: No acute intracranial abnormality Seizure precautions Hypokalemia Trend electrolytes replace as needed hypokalemia 2.9, Microcytic anemia Trend H&H microcytic anemia 10.8, 31.4, platelet count 36 Thrombocytopenia Monitor platelets platelet count 36 History of hypertension As needed antihypertensives DVT prophylaxis Cardiac diet Full code Discharge Plan: Home Plan to discharge in: 48 Hours - Advance Directives Does patient have a Living Will: No Does patient have a Durable POA for Healthcare: No - Code Status/Comfort Care Code Status: Full Code Physician Review: Patient Assessed, Agree with Above Assessment and Plan Critical Care: Yes Time Spent Managing Pts Care (In Minutes): 70
[2023-01-20] MEDS ORDERED: ONDANSETRON 4 MG/2 ML VIAL IV PRN (20:37)
[2023-01-20] MEDS ORDERED: FLUMAZENIL 0.1 MG/ML (5 mL VIAL) IV PRN (20:37)
[2023-01-20] MEDS ORDERED: ACETAMINOPHEN 500 MG TAB PO PRN (20:37)
[2023-01-20] MEDS ORDERED: LORazepam 2 MG/ML VIAL IV PRN (20:39)
[2023-01-20 21:18] LABS: Specific Gravity 1.006 (1.005-1.030); Urine Bacteria None Seen /HPF (<20); Urine Bilirubin NEGATIVE (Negative); Urine Blood Negative (Negative); Urine Clarity Turbid (Clear); Urine Color Light-Yellow (Yellow); Urine Glucose NEGATIVE (Negative); Urine Mucus Slight /HPF (None Seen); Urine Protein NEGATIVE (Negative); Urine RBC <5 /HPF (None Seen); Urine Urobilinogen Normal (Normal); Urine pH 6.5 (5.0-7.0)
[2023-01-20] MEDS ORDERED: TRAMADOL HCL 50 MG TAB PO PRN (21:18)
[2023-01-20 21:27] LABS: Barbiturates NEGATIVE (NEGATIVE); Benzodiazepines NEGATIVE (NEGATIVE); Cocaine NEGATIVE (NEGATIVE); METHAMPHETAM NEGATIVE (NEGATIVE); Methadone NEGATIVE (NEGATIVE); Opiates NEGATIVE (NEGATIVE); Phencyclidine NEGATIVE (NEGATIVE); THC Cannibis NEGATIVE (NEGATIVE)
[2023-01-20] MEDS: chlordiazePOXIDE HCl 25 MG CAP PO SCH ×2 (22:18→23:47)
[2023-01-20] MEDS: DEXMEDETOMIDINE HCL 200 MCG in NA CHLORIDE 0.9% 98 ML IV SCH (22:21)
[2023-01-20] MEDS: D5 0.9 NS 1,000 ML IV SCH (22:21)
[2023-01-20 22:54] VITALS: BMI 22.4
[2023-01-20] MEDS ORDERED: POTASSIUM CL SA 10 MEQ TAB PO ONE (23:15)
[2023-01-21] MEDS ORDERED: MAGNESIUM SULFATE 1 gm IVPB 1 GM/100 ML BAG IV ONE (01:30)
[2023-01-21] MEDS ORDERED: LORazepam 2 MG/ML VIAL IV PRN (03:00)
[2023-01-21] MEDS: DEXMEDETOMIDINE HCL 200 MCG in NA CHLORIDE 0.9% 98 ML IV SCH ×2 (04:23→19:11)
[2023-01-21 04:49] LABS: Absolute Lymphocytes (CBC) 0.9 K/uL (0.7-4.9); Hematocrit 30.7 % (39.6-49.0); Lymphocytes % 22.6 % (15.3-44.8); MCV 106.3 fL (80-100); MPV 9.1 fL (7.6-11.3); Platelets 31 thou/uL (152-406); RBC Red Blood Cell Count 2.89 M/uL (4.33-5.43)
[2023-01-21 05:01] LABS: Protime INR 1.41
[2023-01-21 05:14] LABS: Albumin 2.8 g/dL (3.4-5.0); Bilirubin Direct 1.7 mg/dL (0-0.2); Bilirubin Indirect, Calculated 2.3 mg/dL (0.2-0.8); Potassium 3.5 mEq/L (3.5-5.1); Protein, Total 7.3 g/dL (6.4-8.2)
[2023-01-21] MEDS: chlordiazePOXIDE HCl 25 MG CAP PO SCH ×3 (05:43→18:04)
[2023-01-21] MEDS: D5 0.9 NS 1,000 ML IV SCH ×2 (08:43→18:54)
[2023-01-21] MEDS: MULTIVITAMIN TAB PO SCH (08:46)
[2023-01-21] MEDS: LACTULOSE 20 GM/30 ML UCUP PO SCH ×4 (08:46→19:48)
[2023-01-21] MEDS: THIAMINE HCL 100 MG TABLET PO SCH (08:46)
[2023-01-21] MEDS: FOLIC ACID 1 MG TABLET PO SCH (08:46)
[2023-01-21] MEDS ORDERED: ENOXAPARIN 40 MG/0.4 ML SQ SCH ×2 (09:00)
[2023-01-21] MEDS ORDERED: POTASSIUM CL SA 10 MEQ TAB PO ONE (09:00)
--- NOTE | 2023-01-21 11:30 | RAD REPORT ---
EXAM DESCRIPTION: CT - Abdomen Pelvis W/Wo Contrast - 01/21/2023 8:22 am CLINICAL HISTORY: liver disease COMPARISON: No comparisons TECHNIQUE: Thin cut axial CT imaging of the abdomen and pelvis was performed before and after intrav enous administration of 95 mL Isovue 300. Multiplanar reformats were generated and reviewed. All CT scans are performed using dose optimization technique as appropriate and may include automated exposure control or mA/KV adjustment according to patient size. FINDINGS: Trace bilateral pleural effusions layering dependently. Patchy left basilar airspace opaci ties, concerning for aspiration or early pneumonia. The liver shows mildly nodular contour. Adrenal glands, spleen, and pancreas show no suspicious findi ngs. Gallbladder and biliary tree are also without suspicious finding. Symmetric renal function is seen with no hydronephrosis or suspicious renal mass. Left extra renal pe lvis. The opacified upper left urinary tract are unremarkable. Mild perinephric fluid, nonspecific. No dilated bowel loops or bowel wall thickening. Moderate gaseous distention of the transverse colon. Trace free peritoneal fluid, most notably in the perihepatic region and along the paracolic gutters. Mild retroperitoneal edema as well, nonspecific. No free air, fluid collections, or inflammatory str anding. No hernia, mass or bulky lymphadenopathy. The urinary bladder is without significant finding. No suspicious bony findings. Healing anterior right tenth rib fracture IMPRESSION: Patchy left basilar airspace opacities, concerning for aspiration or early pneumonia. Tr naman bilateral pleural effusions. Mild ascites, most notably perihepatic. Nodular liver contour. Findings suggest underlying hepatocell ular disease or early cirrhosis. Nonspecific mild perinephric and retroperitoneal edema, findings which could relate to volume overloa d among other etiologies. Please correlate clinically.
--- NOTE | 2023-01-21 15:05 | EKG ---
Test Date: 2023-01-20 Test Time: 19:26:59 [employer]: RYLEE MEASUREMENT RESULTS: Intervals: Rate: 73 VA: QRSD: 106 QT: 470 QTc: 517 [place]: P: VA: QRS: 27 T: 37 INTERPRETIVE STATEMENTS: Atrial flutter with 5:[address] and T wave abnormality Prolonged QT Abnormal ECG No previous ECG available for comparison Electronically Signed On 01-21-23 15:04:47 CDT by Rahul [place]
--- NOTE | 2023-01-21 22:30 | P.PN ---
Subjective Date of Service: 01/21/23 Patient is resting comfortably. Patient denies any new complaints. Patient's is at bedside and says he is resting. Patient has some tremors. Patient's oriented and interacting well but he is having some confusion. Continue with Librium and Precedex. Will slowly wean off Precedex as patient improves. Review of Systems 10-point ROS is otherwise unremarkable Physical Examination - Vital Signs Temperature: 98.5 F Blood Pressure: 115/69 Pulse: 50 Respirations: 21 Pulse Ox (%): 97 - Physical Exam General: Alert, In no apparent distress, Oriented x2, Confused HEENT: Atraumatic, PERRLA, EOMI Neck: Supple, JVD not distended Respiratory: Clear to auscultation bilaterally, Normal air movement Cardiovascular: Regular rate/rhythm, Normal S1 S2 Gastrointestinal: Normal bowel sounds, Soft and benign, Non-distended, No tenderness Musculoskeletal: No clubbing, No swelling, No tenderness Integumentary: No rashes Neurological: Sensation intact, Cranial nerves 3-12 intact, Other ( Tremors of the upper extremities), Abnormal strength - Studies Medications List Reviewed: Yes Assessment & Plan - Problems (Diagnosis) (1) Delirium tremens Current Visit: Yes Status: Acute (2) Alcoholic liver disease Current Visit: Yes Status: Acute (3) Macrocytic anemia Current Visit: Yes Status: Acute (4) Hyperammonemia Current Visit: Yes Status: Acute (5) Elevated bilirubin Current Visit: Yes Status: Acute (6) Hyponatremia Current Visit: Yes Status: Acute (7) Pancytopenia Current Visit: Yes Status: Acute (8) Bradycardia Current Visit: Yes Status: Acute - Plan Plan: 1. Continue with Precedex drip and Librium 2. Multivitamins daily 3. Reassess liver function testing; patient's indirect bilirubin is elevated greater than direct bilirubin. Patient could have some intravascular hemolysis: All along with his liver pathology. Will monitor LFTs and check LDH along with additional labs for hemolysis 4. Check thyroid studies 5. Echocardiogram 6. Start some physical therapy 7. Monitor labs for anemia; patient with pancytopenia. May be related to bone marrow issues secondary to alcohol abuse 8. Gi and DVT prophylaxis Discharge Plan: Home Plan to discharge in: Greater than 2 days - Advance Directives Does patient have a Living Will: No Does patient have a Durable POA for Healthcare: No - Code Status/Comfort Care Code Status: Full Code Physician Review: Patient Assessed, Agree with Above Assessment and Plan Critical Care: No Time Spent Managing PTS Care (In Minutes): 35
--- NOTE | 2023-01-22 00:21 | CON ---
Date of Consultation: 01/21/2023 Reason For Consultation: End-stage liver disease secondary to alcohol with seizures, hepatic encepha lopathy, hematochezia, and change in bowel habits, diarrhea. History Of Present Illness: The patient is a 57-year-old white male with history of alcohol abuse an d end-stage liver disease secondary to alcohol, who presented to the hospital with seizure after tryi ng to stop alcohol for 3 days. Patient has decided, he wanted to quit alcohol, was tired of the affe ct on his body and damage to his liver and ability to think clearly, and so he stopped the alcohol 3 days ago, but then he has a seizure. He is being evaluated medically for that. The patient states h e was drinking anywhere from 2 to 12 packs per day, until he quit 3 days ago. He also drinks cigars about 10 to 15 cigars per day. He also notes hematochezia over the past 3 months. He had a negative Cologuard about 3 years ago. In addition, he has change in bowel habits, with diarrhea over the pas t 6 months with tenesmus and fecal incontinence, which his is concerned about. Past Medical History: Significant for herniated disks x3, back surgery x1, hypertension, hyperlipide selma, alcohol abuse, and cirrhosis of the liver and significant alcoholic cirrhosis. Home Medications: Lasix, lactulose, Zofran, spironolactone, Ultram, carvedilol. Allergies: NKDA. Social History: He is , 1 son, 27 years old. 10 to 15 cigars per day to 12 packs per day of a lcohol, quit 3 days ago. Family History: Father alive with hypertension, hyperlipidemia, and stroke. Mother alive with breas t cancer x2. Maternal grandmother with lung cancer. Review of Systems: The patient has seizures, hematochezia, change in bowel habits, diarrhea. He denies any hematemesis, coffee-grounds emesis, melena, hematuria, dysuria, polydipsia. No epistaxis, lower extremity edema, muscle aches, joint aches, backaches. No ascites with abdominal distention. No depression or anxie ty. Mood seems somewhat decreased in the ICU today. Physical Examination: Vital Signs: Patient is 5 feet 11 inches, 150 pounds. BMI of 22.44. General: He is a well-nourished, well-developed male, in no acute distress, currently in ICU. HEENT: Somewhat icteric. Neck: Supple. No masses. Respirations: Clear to auscultation bilaterally. Cardiac: Regular rate and rhythm. No gallops. Gastrointestinal: Positive bowel sounds. Soft, nontender, nondistended. No hepatosplenomegaly. Ex tremities: No clubbing, cyanosis, or edema. 2+ pulses. Neuro: Grossly nonfocal. 5/5 motor strength. Sensation intact to light touch. Laboratory Data: The patient has a white count of 3.9, hemoglobin 10.2, hematocrit 30.7, MCV of ____ . Platelet count 31. Polys 72, lymphocytes 23%, monocytes 6%, eosinophils 1%. PT of 15.5, IN R of 1.41, PTT of 35.9. Sodium 131, potassium 3.5, chloride 103, bicarb 24, BUN of 6, creatinine of 0.8, glucose 105, calcium 7.3, magnesium 2.0, total bilirubin 4.0, direct bilirubin of 1.7, indirect bilirubin 2.3, AST of 168, ALT of 55 consistent with alcohol use, alkaline phosphatase of 95, ammonia of 89, total protein 7.3, albumin 2.8, globulin 4.5. UA negative. Toxicology negative. Plasma alc ohol level is 57. Tylenol level is less than 2.5. Salicylate less than 2.2. CT abdomen and pelvis revealed patchy left basilar airspace opacities concerning for aspiration pneumonia. Trace bilateral pleural effusions and mild ascites of notably perihepatic nodular liver contour. Findings suggest u nderlying hepatocellular disease, cirrhosis, with some edema around the kidneys in the retroperitonea l area could be from volume overload. CT of the head showed no acute abnormalities. Impression: 1.End-stage liver disease, cirrhosis secondary to alcohol abuse with slight jaundice today. 2.Hepatic encephalopathy, grade 2. 3.Hematochezia x3 months, negative Cologuard 3 years ago. We will need to investigate with colonosc opy in this patient. 4.Change in bowel habits x6 months with tenesmus, fecal incontinence, with a full diarrhea workup. 5.Seizures with seizure this admission, off alcohol 3 days, trying to quit. We will need to evaluat e this as well. CT of head is negative today for current workup. 6.History of . Hypertension, hyperlipidemia, alcohol abuse, and he also has thrombocytope arpan with platelets of 31 secondary to cirrhosis. Recommendations: 1.Check stool studies. 2.Thiamine and folate. 3.Benzodiazepines p.r.n. 4.DT precautions. 5.Hepatitis A and B vaccinations. 6.Alcoholics Anonymous or rehab upon discharge. 7.EGD colonoscopy. 8.Xifaxan therapy b.i.d. 9.Also we will check celiac panel and possible IBD panel or other diarrhea workup including TSH. ALE/JUMA Voice ID: [id number] Report ID: [id number]
[2023-01-22] MEDS: chlordiazePOXIDE HCl 25 MG CAP PO SCH ×5 (00:49→23:00)
[2023-01-22] MEDS: PIPER TAZO 3.375 GM in NA CHLORIDE 0.9% 100 ML IV SCH ×3 (00:49→16:33)
[2023-01-22] MEDS: LACTULOSE 20 GM/30 ML UCUP PO SCH ×7 (00:49→19:16)
[2023-01-22] MEDS: DEXMEDETOMIDINE HCL 200 MCG in NA CHLORIDE 0.9% 98 ML IV SCH (01:35)
[2023-01-22] MEDS: D5 0.9 NS 1,000 ML IV SCH ×2 (04:38→15:00)
[2023-01-22 08:04] LABS: Absolute Lymphocytes (CBC) 0.9 K/uL (0.7-4.9); Hematocrit 31.4 % (39.6-49.0); Lymphocytes % 24.1 % (15.3-44.8); MCV 107.3 fL (80-100); MPV 8.4 fL (7.6-11.3); Platelets 30 thou/uL (152-406); RBC Red Blood Cell Count 2.93 M/uL (4.33-5.43)
[2023-01-22 08:49] LABS: Albumin 2.6 g/dL (3.4-5.0); Bilirubin Total 4.5 mg/dL (0.2-1.0); Potassium 3.4 mEq/L (3.5-5.1); Protein, Total 6.9 g/dL (6.4-8.2); Thyroid Stimulating Hormone 4.77 uIU/mL (0.358-3.740)
[2023-01-22 08:53] LABS: Phosphorus 1.5 mg/dL (2.5-4.9)
[2023-01-22] MEDS ORDERED: POTASSIUM PHOS IN 0.9 % NACL 15 MMOL/250 ML BAG IV ONE (09:19)
[2023-01-22] MEDS ORDERED: POTASSIUM CL SA 10 MEQ TAB PO ONE (09:19)
[2023-01-22] MEDS: FOLIC ACID 1 MG TABLET PO SCH (10:02)
[2023-01-22] MEDS: THIAMINE HCL 100 MG TABLET PO SCH (10:02)
[2023-01-22] MEDS: MULTIVITAMIN TAB PO SCH (10:02)
--- NOTE | 2023-01-22 11:49 | P.PN ---
Subjective Date of Service: 01/22/23 Jose Alberto Malone was called this morning as Mr. Damon had become agitated with staff. On rounds, he was alert and oriented x [address] He was easily re-oriented. He reports that his last alcoholic beverage was 6 months ago; however, his serum ethanol level was elevated. He denies any particular sym ptoms this morning. Review of Systems is unable to be obtained Physical Examination - Vital Signs Temperature: 97.7 F Blood Pressure: 115/64 Pulse: 46 Respirations: 20 Pulse Ox (%): 97 - Physical Exam General: Alert, Oriented x2 (person and place), Confused HEENT: Atraumatic, Sclerae nonicteric Neck: JVD not distended Respiratory: Diminished, Rhonchi/gurgles (left-sided) Cardiovascular: No edema, Regular rate/rhythm, Normal S1 S2, No gallops, No rubs, No murmurs Gastrointestinal: Normal bowel sounds, Soft and benign, Non-distended, No tenderness, No rebound, No guarding Musculoskeletal: No clubbing Integumentary: No rashes Neurological: Other (confused, intermittently agitated) - Studies Medications List Reviewed: Yes Assessment And Plan - Plan # Delirium Tremens with Alcohol Withdrawal Syndrome # Hyperammonemia with possible component of Hepatic Encephalopathy # Alcoholic Cirrhosis (MELD = 16) # Pancytopenia secondary to Liver Disease # Hyperbilirubinemia secondary to Liver Disease - CT head = "no acute intracranial abnormality." - Currently on dexmedetomidine drip with scheduled chlordiazepoxide - Attempt to transition from dexmedetomidine to PRN lorazepam - Continue folic acid, lactulose, thiamine, rifaximin - Serial neuro checks # Concern for Aspiration Pneumonia - CT abdomen/pelvis = "patchy left basilar airspace opacities, concerning for aspiration or early pneumonia. Trace bilateral pleural effusions. Mild ascites, most notably perihepatic. Nodular liver contour. Findings suggest underlying hepatocellular disease or early cirrhosis. Nonspecific mild perinephric and retroperitoneal edema, findings which could relate to volume overload among other etiologies. Please correlate clinically." - Does not meet sepsis criteria currently - Procalcitonin = 0.09 - Chest x-ray pending - Currently on piperacillin-tazobactam - wean when able # Bradycardia - suspect due to Dexmedetomidine - Ordered EKG - Will attempt to transition from dexmedetomidine to PRN lorazepam # Hypophosphatemia - Replace as needed # Subclinical Hypothyroidism - TSH 4.77, Free T4 1.28 - Outpatient follow-up Jose Guadalupe Latham M.D.
[2023-01-22] MEDS: LORazepam 2 MG/ML VIAL IV PRN ×7 (14:00→22:56)
[2023-01-22] MEDS ORDERED: LORazepam 2 MG/ML VIAL IV PRN (19:57)
[2023-01-22] MEDS ORDERED: LORazepam 2 MG/ML VIAL IV ONE ×3 (19:57→20:32)
--- NOTE | 2023-01-22 20:19 | P.PN ---
Subjective Date of Service: 01/22/23 Chief Complaint: Alcoholic cirrhosis, seizures Subjective: New changes (DTs now with agitation. Precedex stopped due to bradycardia.) Review of Systems 10-point ROS is otherwise unremarkable General: Weakness, Malaise Neurological: Confusion (DTs ) Physical Examination - Vital Signs Temperature: 98.0 F Blood Pressure: 137/70 Pulse: 77 Respirations: 23 Pulse Ox (%): 100 - Physical Exam General: Alert, Oriented x1, Disheveled, Confused, Delirious HEENT: Atraumatic, Normocephalic, PERRLA Neck: Supple Respiratory: Normal air movement Cardiovascular: Normal pulses Gastrointestinal: Soft and benign, No tenderness, No rebound, No guarding Neurological: Other (DTs with AMS), Abnormal speech - Studies Medications List Reviewed: Yes Assessment And Plan - Current Problems (Diagnosis) (1) Alcoholic cirrhosis of liver Current Visit: Yes Status: Acute (2) Seizures Current Visit: Yes Status: Acute (3) Hematochezia Current Visit: Yes Status: Acute (4) Bradycardia Current Visit: Yes Status: Acute (5) Delirium tremens Current Visit: Yes Status: Acute (6) Elevated bilirubin Current Visit: Yes Status: Acute (7) Hyponatremia Current Visit: Yes Status: Acute (8) Pancytopenia Current Visit: Yes Status: Acute - Plan REC: 1) Increase BDZs 2) Thiamine, Folate 3) DT precautions 4) HAV/HBV vaccinations 5) Xifaxan 550 bid Physician Review: Patient Assessed, Agree with Above Assessment and Plan
[2023-01-23] MEDS: PIPER TAZO 3.375 GM in NA CHLORIDE 0.9% 100 ML IV SCH ×3 (00:20→16:30)
[2023-01-23] MEDS: LORazepam 2 MG/ML VIAL IV PRN ×9 (00:20→22:03)
[2023-01-23] MEDS: LACTULOSE 20 GM/30 ML UCUP PO SCH ×6 (00:21→20:47)
[2023-01-23] MEDS: D5 0.9 NS 1,000 ML IV SCH ×3 (01:00→20:57)
[2023-01-23 05:20] LABS: Hematocrit 32.7 % (39.6-49.0); Lymphocytes % 17.6 % (15.3-44.8); MPV 8.9 fL (7.6-11.3); Platelets 38 thou/uL (152-406); RBC Red Blood Cell Count 3.07 M/uL (4.33-5.43)
[2023-01-23 05:23] LABS: MCV 106.8 fL (80-100)
[2023-01-23 05:26] LABS: Magnesium 1.5 mg/dL (1.6-2.4); Potassium 3.3 mEq/L (3.5-5.1)
[2023-01-23 05:29] LABS: Phosphorus 1.3 mg/dL (2.5-4.9)
[2023-01-23] MEDS: chlordiazePOXIDE HCl 25 MG CAP PO SCH ×3 (05:42→17:20)
[2023-01-23] MEDS ORDERED: Magnesium Sulfate 2gm IVPB 2 G/50 ML BAG IV ONE (06:37)
[2023-01-23] MEDS ORDERED: POTASSIUM 25 MEQ EFFERV TAB PO ONE ×2 (06:38→15:56)
[2023-01-23] MEDS ORDERED: POTASSIUM PHOS IN 0.9 % NACL 15 MMOL/250 ML BAG IV ONE ×2 (07:00→16:18)
[2023-01-23] MEDS: THIAMINE HCL 100 MG TABLET PO SCH (08:41)
[2023-01-23] MEDS: FOLIC ACID 1 MG TABLET PO SCH (08:41)
[2023-01-23] MEDS: MULTIVITAMIN TAB PO SCH (08:42)
[2023-01-23 14:35] LABS: Potassium 3.5 mEq/L (3.5-5.1)
[2023-01-23] MEDS ORDERED: POTASSIUM CL SA 10 MEQ TAB PO ONE (15:53)
[2023-01-23] MEDS ORDERED: LORazepam 2 MG/ML VIAL IV ONE (19:35)
--- NOTE | 2023-01-23 20:44 | P.PN ---
Subjective Date of Service: 01/23/23 Chief Complaint: Alcoholic cirrhosis, seizures He has been intermittently agitated requiring increasing doses of lorazepam and intermittent use of soft restraints. Soft restraints were used to ensure safety of Mr. Damon as well as our staff members. This morning, he is alert and oriented x1 to person. Soft restraints to be removed as soon as it is safe to do so. Review of Systems is unable to be obtained Physical Examination - Vital Signs Temperature: 98.3 F Blood Pressure: 131/97 Pulse: 110 Respirations: 18 Pulse Ox (%): 100 - Studies Medications List Reviewed: Yes Assessment And Plan - Plan - Physical Exam General: Alert, Oriented x1 (person), Confused HEENT: Atraumatic, Sclerae nonicteric Respiratory: Diminished, Rhonchi/gurgles (left-sided) Cardiovascular: No edema, Regular rate/rhythm, No murmurs Gastrointestinal: Soft, Non-distended, No tenderness Integumentary: No rashes Neurological: Other (confused, intermittently agitated) # Delirium Tremens with Alcohol Withdrawal Syndrome # Hyperammonemia with possible component of Hepatic Encephalopathy # Alcoholic Cirrhosis (MELD = 16) # Pancytopenia secondary to Liver Disease # Hyperbilirubinemia secondary to Liver Disease - CT head = "no acute intracranial abnormality." - Currently on scheduled chlordiazepoxide with PRN lorazepam - Soft restraints started due to ensure his safety as well as the safety of our staff members - Continue folic acid, lactulose, thiamine, rifaximin - Serial neuro checks # Concern for Aspiration Pneumonia - CT abdomen/pelvis = "patchy left basilar airspace opacities, concerning for aspiration or early pneumonia. Trace bilateral pleural effusions. Mild ascites, most notably perihepatic. Nodular liver contour. Findings suggest underlying hepatocellular disease or early cirrhosis. Nonspecific mild perinephric and retroperitoneal edema, findings which could relate to volume overload among other etiologies. Please correlate clinically." - Does not meet sepsis criteria currently - Procalcitonin = 0.09 - Chest x-ray pending - Currently on piperacillin-tazobactam - wean when able # Bradycardia - suspect due to Dexmedetomidine - resolved - Ordered EKG - Discontinued dexmedetomidine # Hypophosphatemia - Replace as needed # Subclinical Hypothyroidism - TSH 4.77, Free T4 1.28 - Outpatient follow-up Jose Guadalupe Latham M.D.
[2023-01-23] MEDS: ENSURE HIGH PROTEIN 237 ML CAN PO SCH (20:56)
--- NOTE | 2023-01-23 22:37 | RAD REPORT ---
EXAM DESCRIPTION: RAD - Chest Single View - 01/23/2023 10:23 pm CLINICAL HISTORY: eval for aspiration Chest pain. COMPARISON: Chest Pa And Lat (2 Views) dated 02/21/2022 FINDINGS: Portable technique limits examination quality. Moderate bilateral pulmonary opacities are present which may represent pulmonary edema. Pneumonia wou ld be considered a secondary possibility. The heart is mildly enlarged in size with tortuous thoracic .
[2023-01-24] MEDS: LORazepam 2 MG/ML VIAL IV PRN ×3 (00:16→05:00)
[2023-01-24] MEDS: chlordiazePOXIDE HCl 25 MG CAP PO SCH ×4 (00:17→21:01)
[2023-01-24] MEDS: PIPER TAZO 3.375 GM in NA CHLORIDE 0.9% 100 ML IV SCH ×3 (00:17→16:27)
[2023-01-24] MEDS: chlordiazePOXIDE HCl 5 MG CAP PO SCH ×2 (00:17→05:22)
[2023-01-24] MEDS: LACTULOSE 20 GM/30 ML UCUP PO SCH ×3 (00:18→08:16)
[2023-01-24 07:28] LABS: Hematocrit 30.1 % (39.6-49.0); Lymphocytes % 22.3 % (15.3-44.8); MCV 106.5 fL (80-100); MPV 9.3 fL (7.6-11.3); Platelets 38 thou/uL (152-406); RBC Red Blood Cell Count 2.83 M/uL (4.33-5.43)
[2023-01-24 07:41] LABS: Bicarbonate 22 mEq/L (21-32); Glomerular Filtration Rate 101 ml/min (=/>90); Glucose Level 92 mg/dL (74-106); Magnesium 1.7 mg/dL (1.6-2.4); Phosphorus 3.1 mg/dL (2.5-4.9); Potassium 3.1 mEq/L (3.5-5.1); Sodium Level 134 mEq/L (136-145)
[2023-01-24 07:43] LABS: BUN Blood Urea Nitrogen < 3 mg/dL (7-18)
[2023-01-24] MEDS ORDERED: POTASSIUM 25 MEQ EFFERV TAB PO ONE (07:46)
[2023-01-24] MEDS ORDERED: MAGNESIUM SULFATE 1 gm IVPB 1 GM/100 ML BAG IV ONE (07:46)
[2023-01-24] MEDS: FOLIC ACID 1 MG TABLET PO SCH (08:16)
[2023-01-24] MEDS: THIAMINE HCL 100 MG TABLET PO SCH (08:16)
[2023-01-24] MEDS: MULTIVITAMIN TAB PO SCH (08:16)
[2023-01-24] MEDS: D5 0.9 NS 1,000 ML IV SCH (08:16)
[2023-01-24] MEDS: ENSURE HIGH PROTEIN 237 ML CAN PO SCH ×2 (08:17→20:57)
[2023-01-24] MEDS ORDERED: LACTULOSE 20 GM/30 ML UCUP PO PRN (08:43)
--- NOTE | 2023-01-24 09:17 | P.PN ---
Subjective Date of Service: 01/23/23 Chief Complaint: Alcoholic cirrhosis, seizures, DTs Subjective: Improving (Less DTs with more BDZs. Too agitated to prep for colonoscopy. Required 10 ml Ativan in 1 hour last night. Off Precedex due to bradycardia.) Review of Systems 10-point ROS is otherwise unremarkable General: Weakness, Malaise Neurological: Confusion, Other (DTs, agitation) Physical Examination - Vital Signs Temperature: 98.1 F Blood Pressure: 142/78 Pulse: 75 Respirations: 31 Pulse Ox (%): 98 - Studies Medications List Reviewed: Yes Assessment And Plan - Current Problems (Diagnosis) (1) Alcoholic cirrhosis of liver Current Visit: Yes Status: Acute (2) Seizures Current Visit: Yes Status: Acute (3) Hematochezia Current Visit: Yes Status: Acute (4) Bradycardia Current Visit: Yes Status: Acute (5) Delirium tremens Current Visit: Yes Status: Acute (6) Elevated bilirubin Current Visit: Yes Status: Acute (7) Hyponatremia Current Visit: Yes Status: Acute (8) Pancytopenia Current Visit: Yes Status: Acute - Plan REC: 1) Increase BDZs 2) Thiamine, Folate 3) DT precautions 4) HAV/HBV vaccinations 5) Xifaxan 550 bid 6) gentle IVFs Physician Review: Patient Assessed, Agree with Above Assessment and Plan
--- NOTE | 2023-01-24 09:23 | P.PN ---
Subjective Date of Service: 01/24/23 Chief Complaint: Alcoholic cirrhosis, seizures, DTs Subjective: Improving (Less DTs, eating breakfast civilly. No agitation on Librium 30 mg (up from 25 mg) overnight. On day 7 off alcohol (4 in hospital and 3 before admission leading to sz).) Review of Systems 10-point ROS is otherwise unremarkable General: Weakness, Malaise (Improve.) Neurological: Confusion (Improved.) Physical Examination - Vital Signs Temperature: 98.1 F Blood Pressure: 142/78 Pulse: 75 Respirations: 31 Pulse Ox (%): 98 - Physical Exam General: Alert, In no apparent distress, Oriented x2, Cooperative, Disheveled HEENT: Atraumatic, Normocephalic, PERRLA, EOMI Neck: Supple Respiratory: Normal air movement Cardiovascular: Normal pulses Gastrointestinal: Soft and benign, No tenderness, No rebound, No guarding Neurological: Normal speech, Normal strength at 5/5 x4 extr - Studies Medications List Reviewed: Yes Assessment And Plan - Current Problems (Diagnosis) (1) Alcoholic cirrhosis of liver Current Visit: Yes Status: Acute (2) Seizures Current Visit: Yes Status: Acute (3) Hematochezia Current Visit: Yes Status: Acute (4) Bradycardia Current Visit: Yes Status: Acute (5) Delirium tremens Current Visit: Yes Status: Acute (6) Elevated bilirubin Current Visit: Yes Status: Acute (7) Hyponatremia Current Visit: Yes Status: Acute (8) Pancytopenia Current Visit: Yes Status: Acute - Plan REC: 1) continue BDZs 2) Thiamine, Folate 3) DT precautions 4) HAV/HBV vaccinations 5) Xifaxan 550 bid 6) continue regular diet Physician Review: Patient Assessed, Agree with Above Assessment and Plan
[2023-01-24] MEDS ORDERED: KCL 20 MEQ/100 mL IVPB 20 MEQ/100 ML BAG IV SCH (14:00)
--- NOTE | 2023-01-24 18:52 | P.PN ---
Subjective Date of Service: 01/24/23 Chief Complaint: Alcoholic cirrhosis, seizures, DTs Per RN, he required 8 mg of IV lorazepam overnight. He appears calm this morning, but is still disoriented. He is no longer combative, so soft restraints were removed. Further history is unavailable at this time. Review of Systems is unable to be obtained (confused) Physical Examination - Vital Signs Temperature: 97.7 F Blood Pressure: 128/65 Pulse: 58 Respirations: 24 Pulse Ox (%): 97 - Studies Medications List Reviewed: Yes Assessment And Plan - Plan - Physical Exam General: Alert, Oriented x1 (person), Confused HEENT: Atraumatic, Sclerae nonicteric Respiratory: Diminished, Rhonchi/gurgles (left-sided) Cardiovascular: No edema, Regular rate/rhythm, No murmurs Gastrointestinal: Soft, Non-distended, No tenderness Integumentary: No rashes Neurological: Other (confused, intermittently agitated) # Delirium Tremens with Alcohol Withdrawal Syndrome # Hyperammonemia with possible component of Hepatic Encephalopathy # Alcoholic Cirrhosis (MELD = 16) # Pancytopenia secondary to Liver Disease # Hyperbilirubinemia secondary to Liver Disease - CT head = "no acute intracranial abnormality." - Currently on scheduled chlordiazepoxide with PRN lorazepam - Soft restraints have been removed - Continue folic acid, lactulose, thiamine, rifaximin - Serial neuro checks # Concern for Aspiration Pneumonia - CT abdomen/pelvis = "patchy left basilar airspace opacities, concerning for aspiration or early pneumonia. Trace bilateral pleural effusions. Mild ascites, most notably perihepatic. Nodular liver contour. Findings suggest underlying hepatocellular disease or early cirrhosis. Nonspecific mild perinephric and retroperitoneal edema, findings which could relate to volume overload among other etiologies. Please correlate clinically." - Does not meet sepsis criteria currently - Procalcitonin = 0.09 - Chest x-ray = "moderate bilateral pulmonary opacities are present which may represent pulmonary edema. Pneumonia would be considered a secondary possibility. The heart is mildly enlarged in size with tortuous thoracic." - Currently on piperacillin-tazobactam - wean when able # Bradycardia - suspect due to Dexmedetomidine - resolved - Discontinued dexmedetomidine # Hypophosphatemia - Replace as needed # Subclinical Hypothyroidism - TSH 4.77, Free T4 1.28 - Outpatient follow-up Jose Guadalupe Latham M.D.
[2023-01-24] MEDS ORDERED: FUROSEMIDE 40 MG/4 ML VIAL IV ONE (18:58)
[2023-01-25] MEDS: PIPER TAZO 3.375 GM in NA CHLORIDE 0.9% 100 ML IV SCH ×2 (01:48→09:52)
[2023-01-25 05:23] LABS: Magnesium 1.7 mg/dL (1.6-2.4); Phosphorus 4.3 mg/dL (2.5-4.9); Potassium 3.3 mEq/L (3.5-5.1)
[2023-01-25] MEDS: chlordiazePOXIDE HCl 25 MG CAP PO SCH ×3 (06:16→19:44)
[2023-01-25] MEDS ORDERED: MAGNESIUM SULFATE 1 gm IVPB 1 GM/100 ML BAG IV ONE (06:28)
[2023-01-25] MEDS ORDERED: POTASSIUM 25 MEQ EFFERV TAB PO ONE (06:28)
[2023-01-25] MEDS: ENSURE HIGH PROTEIN 237 ML CAN PO SCH ×2 (09:00→21:00)
[2023-01-25] MEDS: MULTIVITAMIN TAB PO SCH (09:54)
[2023-01-25] MEDS: THIAMINE HCL 100 MG TABLET PO SCH (09:54)
[2023-01-25] MEDS: FOLIC ACID 1 MG TABLET PO SCH (09:54)
--- NOTE | 2023-01-25 17:17 | P.PN ---
Subjective Date of Service: 01/25/23 Chief Complaint: Alcoholic cirrhosis, seizures, DTs His symptoms have improved significantly and he required minimal doses of lorazepam overnight per RN. He is alert and oriented x [address] this morning. Will continue weaning benzodiazepines as tolerated. Review of Systems 10-point ROS is otherwise unremarkable Neurological: Confusion (intermittent) Physical Examination - Vital Signs Temperature: 98.8 F Blood Pressure: 117/70 Pulse: 64 Respirations: 18 Pulse Ox (%): 97 - Studies Medications List Reviewed: Yes Assessment And Plan - Plan - Physical Exam General: Alert, Oriented x2 (person and place) HEENT: Atraumatic, Sclerae nonicteric Respiratory: Diminished, Rhonchi/gurgles (left-sided) Cardiovascular: No edema, Regular rate/rhythm, No murmurs Gastrointestinal: Soft, Non-distended, No tenderness Integumentary: No rashes Neurological: Other (intermittently confused) # Delirium Tremens with Alcohol Withdrawal Syndrome # Hyperammonemia with possible component of Hepatic Encephalopathy # Alcoholic Cirrhosis (MELD = 16) # Pancytopenia secondary to Liver Disease # Hyperbilirubinemia secondary to Liver Disease - CT head = "no acute intracranial abnormality." - Currently on scheduled chlordiazepoxide with PRN lorazepam - Wean benzodiazepines as tolerated - Soft restraints have been removed - Continue folic acid, lactulose, thiamine, rifaximin - Serial neuro checks # Concern for Aspiration Pneumonia - CT abdomen/pelvis = "patchy left basilar airspace opacities, concerning for aspiration or early pneumonia. Trace bilateral pleural effusions. Mild ascites, most notably perihepatic. Nodular liver contour. Findings suggest underlying hepatocellular disease or early cirrhosis. Nonspecific mild perinephric and retroperitoneal edema, findings which could relate to volume overload among other etiologies. Please correlate clinically." - Does not meet sepsis criteria currently - Procalcitonin = 0.09 - Chest x-ray = "moderate bilateral pulmonary opacities are present which may represent pulmonary edema. Pneumonia would be considered a secondary possibility. The heart is mildly enlarged in size with tortuous thoracic." - Currently on piperacillin-tazobactam - transition to PO amoxicillin- clavulanate when able # Bradycardia - suspect due to Dexmedetomidine - resolved - Discontinued dexmedetomidine # Hypophosphatemia - Replace as needed # Subclinical Hypothyroidism - TSH 4.77, Free T4 1.28 - Outpatient follow-up Jose Guadalupe Latham M.D.
[2023-01-25] MEDS: AMOX/K CLAV 875 MG TAB PO SCH (19:44)
[2023-01-26 05:07] LABS: Phosphorus 3.8 mg/dL (2.5-4.9); Potassium 3.7 mEq/L (3.5-5.1)
[2023-01-26] MEDS ORDERED: POTASSIUM CL SA 10 MEQ TAB PO ONE (09:00)
[2023-01-26] MEDS: ENSURE HIGH PROTEIN 237 ML CAN PO SCH ×2 (09:00→20:23)
[2023-01-26] MEDS: chlordiazePOXIDE HCl 25 MG CAP PO SCH (09:06)
[2023-01-26] MEDS: FOLIC ACID 1 MG TABLET PO SCH (09:06)
[2023-01-26] MEDS: MULTIVITAMIN TAB PO SCH (09:06)
[2023-01-26] MEDS: THIAMINE HCL 100 MG TABLET PO SCH (09:06)
[2023-01-26] MEDS: AMOX/K CLAV 875 MG TAB PO SCH ×2 (09:09→20:22)
[2023-01-26 19:20] LABS: Albumin 2.5 g/dL (3.4-5.0); Bilirubin Direct 1.7 mg/dL (0-0.2); Bilirubin Indirect, Calculated 1.2 mg/dL (0.2-0.8); Bilirubin Total 2.9 mg/dL (0.2-1.0)
--- NOTE | 2023-01-26 19:31 | P.DS ---
Admission Date: 01/20/23 Discharge Date: 01/26/23 Disposition: ROUTINE DISCHARGE Discharge Condition: GOOD Reason for Admission: Alcoholic cirrhosis, seizures, DTs Consultations: 1. 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 Ovidio Damon is a 57 year old male with a past medical history significant for alcohol use disorder who was admitted to the [facility] on 01/20/2023 for seizure. He was admitted to the Medicine service. Upon further evaluation, he was found to have delirium tremens from alcohol withdrawal syndrome. He was initially treated with a dexmedetomidine drip and transitioned to a lorazepam taper. Over the course of his hospitalization, his symptoms improved significantly. His mental status returned to baseline and he had complete resolution of his tremors. Today, he was able to work with physical therapy and was at his reported baseline. He stated that he felt well and would like to be discharged home. Of note, his imaging was concerning for aspiration pneumonia, for which he was started on piperacillin-tazobactam and transitioned to amoxicillin- clavulanate at discharge. He expressed interest in alcohol cessation and was provided with resources to assist with alcohol cessation as an outpatient. On 01/26/2023, he was seen on rounds and deemed medically stable for discharge. He was discharged with instructions to schedule follow-up appointments with his PCP and with Gastroenterology (Dr. Balbuena). He was provided prescriptions for amoxicillin-clavulanate and lactulose. He was given the opportunity to ask questions and reported no further questions. Furthermore, all questions were answered to the best of my ability. A copy of this discharge summary will be sent to the above providers to facilitate continuity of care. Today, I personally spent 25 minutes on his case, of which greater than 50% of the time was spent in patient education, counseling, and coordination of care as described above. Vital Signs/Physical Exam: Temp Pulse Resp BP Pulse Ox 98.7 F 66 16 128/71 99 01/26/23 15:00 01/26/23 15:00 01/26/23 15:00 01/26/23 15:00 01/26/23 15:00 General: Alert, In no apparent distress, Oriented x3 HEENT: Atraumatic, Mucous membr. moist/pink, Sclerae nonicteric Neck: JVD not distended Respiratory: Clear to auscultation bilaterally, Diminished Cardiovascular: Regular rate/rhythm, Normal S1 S2, No gallops, No rubs, No murmurs, Edema (trace BLE) Gastrointestinal: Normal bowel sounds, Soft and benign, Non-distended, No tenderness, No rebound, No guarding Musculoskeletal: No clubbing Integumentary: No rashes Neurological: Normal speech, Normal strength at 5/5 x4 extr, Sensation intact, Normal affect Laboratory Data at Discharge: WBC 4.40 thou/uL (4.3-10.9) 01/24/23 07:05 Hgb 10.7 g/dL (13.6-17.9) L 01/24/23 07:05 Hct 30.1 % (39.6-49.0) L 01/24/23 07:05 Plt Count 38 thou/uL (152-406) L 01/24/23 07:05 PT 15.5 SECONDS (9.5-12.5) H 01/21/23 04:26 INR 1.41 01/21/23 04:26 APTT 35.9 SECONDS (24.3-36.9) 01/21/23 04:26 Sodium 135 mEq/L (136-145) L 01/26/23 04:25 Potassium 3.7 mEq/L (3.5-5.1) 01/26/23 04:25 BUN 9 mg/dL (7-18) 01/26/23 04:25 Creatinine 0.96 mg/dL (0.70-1.30) 01/26/23 04:25 Glucose 92 mg/dL (74-106) 01/26/23 04:25 Phosphorus 3.8 mg/dL (2.5-4.9) 01/26/23 04:25 Magnesium 2.0 mg/dL (1.6-2.4) 01/26/23 04:25 Total Bilirubin 2.9 mg/dL (0.2-1.0) H 01/26/23 18:53 AST 108 U/L (15-37) H 01/26/23 18:53 ALT 54 U/L (16-61) 01/26/23 18:53 Alkaline Phosphatase 99 U/L (45-117) 01/26/23 18:53 Triglycerides 99 mg/dL (<150) 01/22/23 07:49 Cholesterol 138 mg/dL (<200) 01/22/23 07:49 HDL Cholesterol 31 mg/dL (40-60) L 01/22/23 07:49 Cholesterol/HDL Ratio 4.45 01/22/23 07:49 Lipase 43 U/L (13-75) 01/22/23 07:49 Home Medications: Amox/Clavulanate [Augmentin 875-125 Tab*] 875 mg PO BID 3 Days #6 tab 01/26/23 Lactulose 30 ml PO BID PRN #1800 ml 01/26/23 Multivit,Ther Iron,Ca,FA & Min [Centrum Tablet*] 1 tab PO DAILY tab 01/26/23 Thiamine HCl [Vitamin B-1*] 100 mg PO DAILY 01/26/23 New Medications: Amox/Clavulanate [Augmentin 875-125 Tab*] 875 mg PO BID 3 Days #6 tab Lactulose 30 ml PO BID PRN #1800 ml PRN Reason: Constipation Physician Discharge Instructions: 1. Please call and schedule a follow-up appointment with your PCP in 3-5 days - Your blood work showed mild anemia. Please discuss further evaluation, including a colonoscopy, with your PCP - Your chest x-ray was concerning for possible pneumonia. Please have your PCP repeat a chest x-ray in 2-3 weeks to make sure your pneumonia has fully healed - Your thyroid blood tests were slightly abnormal. Please have your PCP repeat this bloodwork at your next visit. 2. Please call and schedule a follow-up appointment with Gastroenterology (Dr. Balbuena) in 5-7 days Diet: AHA Activity: Ad mary jane Followup: rBett Balbuena MD [ASSOCIATE-ACTIVE - CAN ADMIT] - Time spent managing pt's care (in minutes): 25
[2023-01-26 20:58] VITALS: BP 110/65; TEMP 98.9
[2023-01-26 21:21] VITALS: O2SAT 100
== END 2023-01-26 20:30 | disposition home or self-care (01) | DRG 100 ==
LOC: ER 18:52 → 3RD-ICU 20:31 → 2ND 01-26 15:56
PROVIDERS: ADMIT Hospitalist; ATTEND Internal Medicine
DX: G40.89 Other seizures (principal); J69.0 Pneumonitis due to inhalation of food and vomit; F10.231 Alcohol dependence with withdrawal delirium; E72.20 Disorder of urea cycle metabolism, unspecified; E87.1 Hypo-osmolality and hyponatremia; D61.818 Other pancytopenia; K92.1 Melena; F10.232 Alcohol dependence with withdrawal with perceptual disturbance; K76.82 Hepatic encephalopathy; K72.10 Chronic hepatic failure without coma; K70.9 Alcoholic liver disease, unspecified; E80.6 Other disorders of bilirubin metabolism; K70.31 Alcoholic cirrhosis of liver with ascites; E83.39 Other disorders of phosphorus metabolism; E03.8 Other specified hypothyroidism; E87.6 Hypokalemia; D50.9 Iron deficiency anemia, unspecified; T42.6X5A Adverse effect of other antiepileptic and sedative-hypnotic drugs, initial encounter; R00.1 Bradycardia, unspecified; Z78.1 Physical restraint status; Z79.02 Long term (current) use of antithrombotics/antiplatelets; Z79.899 Other long term (current) drug therapy; Y90.2 Blood alcohol level of 40-59 mg/100 ml
CPT/HCPCS: 36415; 70450; 71045; 74178; 80048; 80053; 80061; 80076; 80143; 80179; 80307; 81001; 82077; 82140; 82248; 82533; 82607; 83010; 83540; 83615; 83690; 83735; 83880; 84100; 84132; 84145; 84439; 84443; 85025; 85044; 85610; 85730; 86880; 87045; 87046; 93005; 96361; 96365; 96375; 97116; 97161; 99285; J1650; J1940; J2543; J2765; J3475; J3480; J7030; J7040; J7042; Q9967